=== PATIENT | female | born 1940 | race Caucasian/White ===

== ENCOUNTER 2022-02-01 11:28 | Inpatient (IN) | payer MEDICARE, OTHER, SELFPAY ==
[2022-02-01] VITALS (39 sets, daily range): BP systolic 114–170; BP diastolic 54–73; PULSE 62–82; RESP 16–32; TEMP 36.2–36.4; O2SAT 93–98; BMI 30.4
--- NOTE | 2022-02-01 11:44 | DI.CT.S_ITS ---
PROCEDURE: CT HEAD/BRAIN WO CON INDICATIONS: change in mental status, slurred words, now ok TECHNIQUE: Noncontrast 4.5 mm thick angled axial sections acquired from the foramen magnum to the vertex, with coronal and sagittal reformats. For radiation dose reduction, the following was used: automated exposure control, adjustment of mA and/or kV according to patient size. COMPARISON: None. FINDINGS: Image quality: Excellent. CSF spaces: Basal cisterns are patent. No extra-axial fluid collections. The ventricles are symmetric in size and shape. Brain: No intracranial bleeds or masses. There is cerebral volume loss for age, with resultant ventricular and sulcal prominence. There are periventricular and deep white matter chronic small vessel ischemic changes. There is intracranial internal carotid artery atherosclerosis. Skull and face: Calvarium and visualized facial bones appear intact, without suspicious lesions. Sinuses: Visualized sinuses demonstrate minimal maxillary, sphenoid and ethmoid mucosal thickening. IMPRESSION: 1. No acute intracranial process. 2. Moderate atrophy and chronic microvascular ischemic changes. Dictated by: Nila Keith M.D. on 02/01/2022 at 12:02 Approved by: Nila Keith M.D. on 02/01/2022 at 12:03
--- NOTE | 2022-02-01 11:44 | DI.RAD.S_ITS ---
PROCEDURE: XR CHEST 1V INDICATIONS: suspected sepsis TECHNIQUE: One view of the chest was acquired. COMPARISON: None. FINDINGS: Surgical changes and devices: None. Lungs and pleura: Lungs are clear. No pleural effusions or pneumothorax. Mediastinum: Mediastinal contours appear normal. Heart size is normal. Bones and chest wall: No suspicious bony lesions. Overlying soft tissues appear unremarkable. IMPRESSION: No acute process. Dictated by: Laura Mondragon M.D. on 02/01/2022 at 11:58 Approved by: Laura Mondragon M.D. on 02/01/2022 at 11:58
--- NOTE | 2022-02-01 12:07 | ED.NEUROSD ---
HPI - Neuro Symptoms/Deficit General Chief Complaint: Neuro Symptoms/Deficit Stated Complaint: slurring her words/ numbness/ history TIA Time Seen by Provider: 02/01/22 11:53 Source: patient and family Mode of arrival: Ambulatory History of Present Illness HPI Narrative: Patient is a 81-year-old female who is here for evaluation of was initially described as slurring her words, tingling/numbness/weakness in her right hand. She also has a history of a TIA. Approximately 4 days ago she was diagnosed with influenza. She is on Tamiflu. She is also on doxycycline for what the family describes as pneumonia. She is not taken her doxycycline today. A couple days ago she did have some vague tingling in her right hand. It was earlier today when she started having with family describes his slurring her words. Upon further questioning it appears that was more confusion and word-finding issues. There was period of time when she was talking in touch which is her [place] language and this was mixed with [place]. Here in the emergency department the patient denies chest pain, shortness of breath, headache, abdominal pain. She denies any cough. No fevers. No urinary tract infection like symptoms. No change in bowel habits. On Anticoagulants: Yes (ASA 81 mg) Related Data Allergies Allergy/AdvReac Type Severity Reaction Status Date / Time No Known Drug Allergies Allergy Verified 02/01/22 11:55 Review of Systems Review of Systems ROS Unobtainable: All systems reviewed & are unremarkable except as noted in HPI and below Hematologic/Lymphatic On Anticoagulants: Yes (ASA 81 mg) Patient History Medical History TIA (transient ischemic attack) Social History Smoking Status: Never smoker Smoking Status: Never smoker alcohol intake frequency: 0-2 drinks per day Substance Use Type: does not use Exam Initial Vital Signs Initial Vital Signs: Vital Signs Pulse Rate 67 02/01/22 11:44 Respiratory Rate 25 H 02/01/22 11:44 Const General: cooperative, comfortable and No ill appearing [facility] Head: normal to inspection and normocephalic Face and sinus: normal facial exam Mouth: oral mucosae normal Throat: posterior oropharynx normal Eyes General: Yes appearance normal, both eyes and all related structures Periorbital: periorbital findings normal Pupils: PERRL Neck Neck: normal visual inspection Chest Chest: normal inspection of the chest Resp Effort & Inspection: normal respiratory effort Auscultation: clear to auscultation bilaterally Cardio Rate: regular rate Rhythm: regular rhythm GI Inspection: normal to inspection and non-distended Skin General: no rashes or lesions noted Lesions: no lesions Neuro General: patient alert, patient awake, tone normal and moves all extremities Cranial Nerves: CN's II-XI intact bilaterally Cognition: abnormal cognition (Does not know the year. Does know the month. Knows she is in the hospital) Speech: speech normal and no expressive aphasia Motor: other (Strength is 5/5 bilateral upper and lower extremities equally except has 4/) Extrem General: normal to inspection and capillary refill normal Psych Appearance: grossly normal and well kempt Scores GCS R[place]ina coma scale eye opening: Spontaneous [place] coma scale verbal response: Confused [place] coma scale motor response: Obey commands [place] coma scale total score: 14 NIH Stroke Scale Level of Conciousness: Alert, keenly responsive Ask month/age: Answers both questions correctly. (However does not know the year) Open/close eyes, close hand: Performs both tasks correctly Best gaze horizontal: Normal Visual christopher: No visual loss Facial palsy: Normal symetrical movement Left arm drift: No drift for full 10 sec Right arm drift: No drift for full 10 sec (However decreased snow removal/plowing strength right hand compared to left) Left leg drift: No drift for full 5 sec Right leg drift: No drift for full 5 sec Limb ataxia: Absent Sensory on face/arms/legs: Normal, no sensory loss Best language: No aphasia, normal Dysarthria: Normal Extinction or inattention: No abnormality Total NIH Stroke scale score: 0 Course Orders Ordered: ED Orders 02/01/22 11:44 CT head/brain wo con Stat XR chest 1V Stat RT Consult Eval and Treat NOW 02/01/22 12:00 Complete Blood Count AUTO DIFF Stat Comprehensive Metabolic Panel Stat Lactate (Lactic Acid) Stat Lipase Stat Partial Thromboplastin Time Stat Procalcitonin Stat Prothrombin Time INR Stat Troponin & CK Cardiac Panel Stat 02/01/22 12:25 CT angio head and neck Stat 02/01/22 12:57 Urine Culture Stat Urine Microscopic Stat urine tox [Urine Drug Screen, Rapid] Stat 02/01/22 13:01 Blood Culture Stat 02/01/22 14:16 EKG-12 Lead Stat 02/01/22 15:30 Consult to Occupational Therapy Evaluate & Treat Consult to Physical Therapy Evaluate & Treat EC echo doppler complete Urgent MR head/brain wo con Stat Magnesium Urgent 02/01/22 15:33 Consult to Speech Therapy Evaluate & Treat 02/01/22 15:34 A1C [Hemoglobin A1C% w Est Avg Glu] Urgent Lipid Panel Urgent 02/01/22 15:42 Covid-19 + FLU A/B + RSV - PCR Stat 02/02/22 05:00 BMP [Basic Metabolic Panel] DAILY CBC Auto Diff [Complete Blood Count AUTO DIFF] DAILY 02/03/22 05:00 BMP [Basic Metabolic Panel] DAILY CBC Auto Diff [Complete Blood Count AUTO DIFF] DAILY 02/04/22 05:00 BMP [Basic Metabolic Panel] DAILY CBC Auto Diff [Complete Blood Count AUTO DIFF] DAILY Acetaminophen (Acetaminophen 325 Mg Tablet) 650 mg PO Q6H PRN PRN Reason: Fever/Mild Pain (1-3) Aspirin (Aspirin Ec 81 Mg Tablet) 81 mg PO DAILY [facility] Atorvastatin Calcium (Atorvastatin 20 Mg Tablet) 40 mg PO BEDTIME [facility] Enoxaparin Sodium (Enoxaparin 40 Mg/0.4 Ml Syringe) 40 mg SUBCUT DAILY [facility] Ceftriaxone Sodium 1,000 mg/ (Sodium Chloride) 100 mls @ 200 mls/hr IV Q24H [facility]ORY Stop: 02/04/22 15:29 Labetalol HCl (Labetalol 20 Mg/4 Ml Syringe) 10 mg IV Q5H PRN PRN Reason: SBP >220 or DBP >110 Melatonin (Melatonin 3 Mg Tablet) 6 mg PO BEDTIME PRN PRN Reason: Insomnia Naloxone HCl (Naloxone 0.4 Mg/Ml Vial) 0.2 mg IV Q2MIN PRN PRN Reason: Opiate Reversal Polyethylene Glycol (Polyethylene Glycol 3350 17 Gm Powd.Pack) 17 gm PO DAILY PRN PRN Reason: Constipation Sennosides (Sennosides 8.6 Mg Tablet) 8.6 mg PO BID PRN PRN Reason: Constipation Vital Signs Vital signs: Vital Signs - 8 hr 02/01/22 11:46 02/01/22 11:44 02/01/22 11:59 Temperature 97.6 F Pulse Rate 82 67 Respiratory Rate 24 25 H Blood Pressure 116/61 162/70 H Pulse Oximetry 98 Oxygen Delivery Method Room Air 02/01/22 11:59 02/01/22 12:00 02/01/22 12:00 Temperature Pulse Rate 69 67 Respiratory Rate 28 H 30 H Blood Pressure 156/68 H Pulse Oximetry 95 95 Oxygen Delivery Method 02/01/22 12:30 02/01/22 12:32 02/01/22 12:32 Temperature Pulse Rate 64 64 Respiratory Rate 32 H 24 Blood Pressure 163/70 H Pulse Oximetry 94 94 Oxygen Delivery Method 02/01/22 13:04 02/01/22 13:06 02/01/22 13:06 Temperature Pulse Rate 65 63 Respiratory Rate 21 Blood Pressure 143/68 H Pulse Oximetry 94 Oxygen Delivery Method 02/01/22 13:09 02/01/22 13:09 02/01/22 13:15 Temperature Pulse Rate 62 70 Respiratory Rate 25 H 25 H Blood Pressure 153/69 H Pulse Oximetry 95 95 Oxygen Delivery Method 02/01/22 13:15 02/01/22 13:30 02/01/22 13:30 Temperature Pulse Rate 64 Respiratory Rate 26 H Blood Pressure 134/64 133/58 L Pulse Oximetry 94 Oxygen Delivery Method Room Air 02/01/22 13:45 02/01/22 13:45 02/01/22 14:04 Temperature Pulse Rate 65 67 Respiratory Rate 25 H 30 H Blood Pressure 166/70 H Pulse Oximetry 94 98 Oxygen Delivery Method 02/01/22 14:05 02/01/22 14:05 02/01/22 14:15 Temperature Pulse Rate 68 67 Respiratory Rate 28 H 23 Blood Pressure 170/71 H Pulse Oximetry 95 95 Oxygen Delivery Method 02/01/22 14:15 02/01/22 14:30 02/01/22 14:30 Temperature Pulse Rate 64 Respiratory Rate 23 Blood Pressure 154/68 H 143/65 H Pulse Oximetry 94 Oxygen Delivery Method 02/01/22 14:44 02/01/22 14:45 02/01/22 14:45 Temperature Pulse Rate 64 65 Respiratory Rate 21 25 H Blood Pressure 151/61 H Pulse Oximetry 95 95 Oxygen Delivery Method 02/01/22 15:00 02/01/22 15:00 02/01/22 15:15 Temperature Pulse Rate 65 Respiratory Rate 22 Blood Pressure 135/64 120/57 L Pulse Oximetry 95 Oxygen Delivery Method 02/01/22 15:15 02/01/22 15:30 02/01/22 15:30 Temperature Pulse Rate 69 71 Respiratory Rate 22 28 H Blood Pressure 148/65 H Pulse Oximetry 94 94 Oxygen Delivery Method MDM - Neuro Symptoms/Deficit Lab Data Attestation: I reviewed the patient's lab results. Result diagrams: 02/01/22 12:00 02/01/22 12:00 Labs: Lab Results 02/01/22 02/01/22 02/01/22 Range/Units 12:00 12:00 12:00 WBC 4.8 (4.5-11.0) X10^3/uL RBC 3.71 L (4.0-5.2) X10^6/uL Hgb 12.2 (12.0-16.0) g/dL Hct 35.7 L (36-46) % MCV 96.1 (80-100) fL MCH 32.8 (26-34) PG MCHC 34.2 (30-36) % RDW 12.5 (11.6-14.8) % Plt Count 453 H (150-400) X10^3/uL Neut % (Auto) 53.1 (50-75) % Lymph % (Auto) 33.9 (25-40) % [place] % (Auto) 11.3 (3-14) % Eos % (Auto) 0.6 L (2-4) % Baso % (Auto) 1.1 (0-2) % Neut # (Auto) 2600 (4499-5315) /uL Lymph # (Auto) 1600 (2253-0396) /uL [place] # (Auto) 500 (0-900) /uL Eos # (Auto) 0 (0-450) /uL Baso # (Auto) 100 (0-100) /uL PT 12.8 H (10.1-12.7) SECONDS INR 1.1 (0.9-1.3) APTT 31 (26-36) SECONDS Sodium 139 (137-145) mmol/L Potassium 3.9 (3.4-5.1) mmol/L Chloride 103 (98-107) mmol/L Carbon Dioxide 25 (22-32) mmol/L BUN 16 (7-17) mg/dL Creatinine 0.67 (0.52-1.04) mg/dL Estimated GFR > 60 (>60) mL/min BUN/Creatinine Ratio 23.9 H (6-22) Glucose 99 (80-110) mg/dL Lactate (0.7-2.1) mmol/L Calcium 8.9 (8.4-10.2) mg/dL Total Bilirubin 0.5 (0.2-1.3) mg/dL AST 40 H (14-36) IU/L ALT 27 (<35) IU/L Alkaline Phosphatase 160 H (38-126) U/L Total Creatine Kinase 63 (30-135) U/L CK-MB (CK-2) TNP CK-MB (CK-2) Rel Index TNP Troponin I < 0.012 (0.01-0.034) ng/mL Total Protein 7.4 (6.3-8.2) g/dL Albumin 3.7 (3.5-5.0) g/dL Globulin 3.7 (1.7-4.1) g/dL Albumin/Globulin Ratio 1.0 (1.0-2.8) Lipase 67 (23-300) U/L Procalcitonin 0.05 (<0.5) ng/mL Urine RBC (0-5/HPF) Urine WBC (0-5/HPF) Ur Squamous Epith Cells (0-5/HPF) Urine Bacteria (None) Ur Culture Indicated? U Opiates 300ng/mL cut (Negative) Ur Oxycodone Screen (Negative) Urine Methadone Screen (Negative) Ur Barbiturates Screen (Negative) U Tricyclic Antidepress (Negative) Ur Phencyclidine Scrn (Negative) Ur Amphetamines Screen (Negative) U Methamphetamines Scrn (Negative) Ur MDMA Scrn (Ecstasy) (Negative) U Benzodiazepines Scrn (Negative) Urine Cocaine Screen (Negative) U Marijuana (THC) Screen (Negative) 02/01/22 02/01/22 02/01/22 Range/Units 12:00 12:57 12:57 WBC (4.5-11.0) X10^3/uL RBC (4.0-5.2) X10^6/uL Hgb (12.0-16.0) g/dL Hct (36-46) % MCV (80-100) fL MCH (26-34) PG MCHC (30-36) % RDW (11.6-14.8) % Plt Count (150-400) X10^3/uL Neut % (Auto) (50-75) % Lymph % (Auto) (25-40) % [place] % (Auto) (3-14) % Eos % (Auto) (2-4) % Baso % (Auto) (0-2) % Neut # (Auto) (4961-7531) /uL Lymph # (Auto) (4513-1542) /uL [place] # (Auto) (0-900) /uL Eos # (Auto) (0-450) /uL Baso # (Auto) (0-100) /uL PT (10.1-12.7) SECONDS INR (0.9-1.3) APTT (26-36) SECONDS Sodium (137-145) mmol/L Potassium (3.4-5.1) mmol/L Chloride (98-107) mmol/L Carbon Dioxide (22-32) mmol/L BUN (7-17) mg/dL Creatinine (0.52-1.04) mg/dL Estimated GFR (>60) mL/min BUN/Creatinine Ratio (6-22) Glucose (80-110) mg/dL Lactate 1.0 (0.7-2.1) mmol/L Calcium (8.4-10.2) mg/dL Total Bilirubin (0.2-1.3) mg/dL AST (14-36) IU/L ALT (<35) IU/L Alkaline Phosphatase (38-126) U/L Total Creatine Kinase (30-135) U/L CK-MB (CK-2) CK-MB (CK-2) Rel Index Troponin I (0.01-0.034) ng/mL Total Protein (6.3-8.2) g/dL Albumin (3.5-5.0) g/dL Globulin (1.7-4.1) g/dL Albumin/Globulin Ratio (1.0-2.8) Lipase (23-300) U/L Procalcitonin (<0.5) ng/mL Urine RBC 0-1/hpf (0-5/HPF) Urine WBC 5-10/hpf H (0-5/HPF) Ur Squamous Epith Cells 1-5 /hpf (0-5/HPF) Urine Bacteria Few (2-10) H (None) Ur Culture Indicated? Specimen cultured U Opiates 300ng/mL cut Negative (Negative) Ur Oxycodone Screen Negative (Negative) Urine Methadone Screen Negative (Negative) Ur Barbiturates Screen Negative (Negative) U Tricyclic Antidepress Negative (Negative) Ur Phencyclidine Scrn Negative (Negative) Ur Amphetamines Screen Negative (Negative) U Methamphetamines Scrn Negative (Negative) Ur MDMA Scrn (Ecstasy) Negative (Negative) U Benzodiazepines Scrn Negative (Negative) Urine Cocaine Screen Negative (Negative) U Marijuana (THC) Screen Negative (Negative) Urine Dip Bedside Urine Glucose Negative Bedside Urine Bilirubin - Negative Bedside Urine Ketone - Negative Urine Specific [place] 1.015 Bedside Urine Occult Blood +/- Bedside Urine pH 6.0 Bedside Urine Protein - Negative Bedside Urine Urobilinogen - Negative Bedside Urine Nitrite - Negative Bedside Urine Leukocytes + [address] scan - head: Radiologist's Impression: [address] [address] [address] Scan Report Signed Patient: Brandi Woodward MR#: [id number] : 1940 Acct:[id number] Age/Sex: 81 / F Date of Service: 02/01/22 Loc: ED Accession Number: [id number] ?? Procedure: CT head/brain wo con Ordering Provider: Kory Muir D.O. PROCEDURE:? CT HEAD/BRAIN WO CON ? INDICATIONS:? change in mental status, slurred words, now ok ? TECHNIQUE:? Noncontrast 4.5 mm thick angled axial sections acquired from the foramen magnum to the vertex, with coronal and sagittal reformats.? For radiation dose reduction, the following was used:? automated exposure control, adjustment of mA and/or kV according to patient size.? ? COMPARISON:? None. ? FINDINGS:? Image quality:? Excellent.? ? CSF spaces:? Basal cisterns are patent.? No extra-axial fluid collections.? The ventricles are symmetric in size and shape.? ? Brain:? No intracranial bleeds or masses.? There is cerebral volume loss for age, with resultant ventricular and sulcal prominence.? There are periventricular and deep white matter chronic small vessel ischemic changes.? There is intracranial internal carotid artery atherosclerosis.? ? Skull and face:? Calvarium and visualized facial bones appear intact, without suspicious lesions.? ? Sinuses:? Visualized sinuses demonstrate minimal maxillary, sphenoid and ethmoid mucosal thickening. ? IMPRESSION:? ? 1. No acute intracranial process. ? 2. Moderate atrophy and chronic microvascular ischemic changes. ? ? ? Dictated by: Nila Keith M.D. on 02/01/2022 at 12:02 ? ? Approved by: Nila Keith M.D. on 02/01/2022 at 12:03 Chest x-ray: Radiologist's Impression: [address] [address] XRay Report Signed Patient: Brandi Woodward MR#: [id number] : 1940 Acct:[id number] Age/Sex: 81 / F Date of Service: 02/01/22 Loc: ED Accession Number: [id number] ?? Procedure: XR chest 1V Ordering Provider: Kory Muir D.O. PROCEDURE:? XR CHEST 1V ? INDICATIONS:? suspected sepsis ? TECHNIQUE:? One view of the chest was acquired.? ? COMPARISON:? None. ? FINDINGS:? ? Surgical changes and devices:? None.? ? Lungs and pleura:? Lungs are clear.? No pleural effusions or pneumothorax.? ? Mediastinum:? Mediastinal contours appear normal.? Heart size is normal.? ? Bones and chest wall:? No suspicious bony lesions.? Overlying soft tissues appear unremarkable.? ? IMPRESSION:? No acute process. ? ? Dictated by: Laura Mondragon M.D. on 02/01/2022 at 11:58 ? ? Approved by: Laura Mondragon M.D. on 02/01/2022 at 11:58?? ECG Data Attestation: I personally reviewed and interpreted this ECG as follows: Interpretation: Sinus rhythm LVH Ventricular rate is 67 Normal QRS Normal QTC No ST T wave changes MDM Narrative Medical decision making narrative: Patient is on Tamiflu and also doxycycline for pneumonia that was diagnosed at an outside facility. She is afebrile here. Electrolytes are unremarkable. She is bacteria and white blood cells in her urine however has no UTI symptoms. Cultures were obtained. Head CT is unremarkable. Technically has an NIH score of 0 however does have decreased snow removal/plowing strength to the right hand compared to the left. In orientation questions she answers the month in the location correctly however does not know what year it is. This is not normal for her per family who is at bedside. Given her presenting symptoms will admit the patient for further evaluation and treatment. Discussed this with the patient and family and they expressed understanding. Discussed the case with Dr. Barraza who will admit for further evaluation treatment. Discharge Plan Departure Patient Disposition: Admitted as Observation Clinical Impression: Transient cerebral ischemia, Influenza, Confusion
--- NOTE | 2022-02-01 12:25 | DI.CT.S_ITS ---
PROCEDURE: CT ANGIO HEAD AND NECK INDICATIONS: Evaluate for stroke TECHNIQUE: After the administration of intravenous contrast, 1 mm thick sections acquired from the aortic arch through the [place]. Post-contrast 4.5 mm thick sections then re-acquired from the foramen magnum to the vertex. 3-dimensional ujhshee-nkuzyefla-odzkfucvzy (MIP) and/or volume rendering reformats were acquired of the central intracranial vasculature and neck separately. For radiation dose reduction, the following was used: automated exposure control, adjustment of mA and/or kV according to patient size. COMPARISON: None. FINDINGS: HEAD CT ANGIOGRAPHY: Diminished opacification of the left ICA extending through the terminus and into the proximal aspects of the left JOÃO and MCA branches. No focal occlusion or hemodynamically significant stenosis. Distal V4 segments, basilar artery, and posterior cerebral arteries normal. NECK CT ANGIOGRAPHY: Within the proximal left ICA just distal to the origin there is intraluminal thrombus producing moderate approximately 50-60% stenosis. Thrombus extends for approximately 1.5 cm in length, best seen on series 7 images 44-54. Mild atherosclerotic plaque and calcification in the common carotid arteries and carotid bifurcations bilaterally. Cervical vertebral arteries widely patent. OTHER FINDINGS: Apical pleural parenchymal scarring in both lungs with associated cicatricial bronchiectasis. No acute or suspicious bone lesion. IMPRESSION: Filling defect in the left proximal ICA producing 50-60% stenosis is favored to represent thrombus. Recommend consultation of endovascular service for potential clot retrieval. Any quantitative measurements of stenosis were performed using NASCET criteria. Dictated by: Guzman Haas M.D. on 02/01/2022 at 15:42 Approved by: Guzman Haas M.D. on 02/01/2022 at 15:49
[2022-02-01 12:45] LABS: Add Manual Diff / Slide Review NO; Basophils Absolute Auto 100 /uL (0-100); Basophils Percent Auto 1.1 % (0-2); Eosinophils Absolute Auto 0 /uL (0-450); Eosinophils Percent Auto 0.6 % (2-4); Hematocrit 35.7 % (36-46); Hemoglobin 12.2 g/dL (12.0-16.0); Lymphocytes Absolute Auto 1600 /uL (1100-4500); Lymphocytes Percent Auto 33.9 % (25-40); Mean Corpuscular HGB Conc 34.2 % (30-36); Mean Corpuscular Hemoglobin 32.8 PG (26-34); Mean Corpuscular Volume 96.1 fL (80-100); Monocytes Absolute Auto 500 /uL (0-900); Monocytes Percent Auto 11.3 % (3-14); Neutrophils Absolute Auto 2600 /uL (1500-7000); Neutrophils Percent Auto 53.1 % (50-75); Platelet Count 453 X10^3/uL (150-400); Red Blood Cell Count 3.71 X10^6/uL (4.0-5.2); Red Cell Distribution Width 12.5 % (11.6-14.8); White Blood Cell Count 4.8 X10^3/uL (4.5-11.0)
[2022-02-01 12:56] LABS: INR 1.1 (0.9-1.3); Prothrombin Time 12.8 SECONDS (10.1-12.7)
[2022-02-01 12:59] LABS: PTT Partial Thromboplastin Tim 31 SECONDS (26-36)
[2022-02-01 13:15] LABS: UR Morphine/Opiate cutoff 300 Negative (Negative); Ur Creatinine Normal (Normal); Ur Specific Gravity Normal (Normal); Urine Amphetamines Negative (Negative); Urine Barbiturates Negative (Negative); Urine Benzodiazepines Negative (Negative); Urine Cocaine Negative (Negative); Urine MDMA Negative (Negative); Urine Methadone Negative (Negative); Urine Methamphetamines Negative (Negative); Urine Oxycodone Negative (Negative); Urine Phencyclidine Negative (Negative); Urine Tetrahydrocannabinol Negative (Negative); Urine Tricyclic Antidepressant Negative (Negative); Urine pH Normal (Normal)
[2022-02-01 13:33] LABS: Alanine Aminotransferase 27 IU/L (<35); Albumin 3.7 g/dL (3.5-5.0); Alkaline Phosphatase 160 U/L (38-126); Aspartate Aminotransferase 40 IU/L (14-36); BUN Creatinine Ratio 23.9 (6-22); Bilirubin Total 0.5 mg/dL (0.2-1.3); Blood Urea Nitrogen 16 mg/dL (7-17); Calcium 8.9 mg/dL (8.4-10.2); Carbon Dioxide 25 mmol/L (22-32); Chloride 103 mmol/L (98-107); Creatine Kinase 63 U/L (30-135); Estimated Glomerular Filt Rate > 60 mL/min (>60); Globulin 3.7 g/dL (1.7-4.1); Glucose 99 mg/dL (80-110); HEMOLYSIS < 15 (0-50); Lipase 67 U/L (23-300); Potassium 3.9 mmol/L (3.4-5.1); Sodium 139 mmol/L (137-145); Total Protein 7.4 g/dL (6.3-8.2)
[2022-02-01 13:45] LABS: Troponin I < 0.012 ng/mL (0.01-0.034)
[2022-02-01 13:49] LABS: Procalcitonin 0.05 ng/mL (<0.5)
[2022-02-01 14:01] LABS: Bacteria Urine Few (2-10); Culture Indicated Urine Specimen Cultured; RBC Urine 0-1/HPF (0-5/HPF); Squamous Epithelial Cell Urine 1-5 /HPF (0-5/HPF); WBC Urine 5-10/HPF (0-5/HPF)
--- NOTE | 2022-02-01 15:30 | DI.ECHO.S_ITS ---
[facility] +[facility]+ : : [address] : : : : [id number] : : : : Phone: [phone]+ Echocardiogram Report + + :Name: JOSE FRANCISCO IRIZARRY Study Date: 02/02/2022 Height: 65.5 in: :[facility] ReadingLocation: Weight: 182 lb : : Gender: Female BSA: 1.9 m2 : :: 1940 Age: 81 yrs BP: 120/57 mmHg: :Reason For Study: TIA : :Ordering Physician: MARILYNN GUTIERREZ : :Reji Escobar Performed By: Delores Handy : :Referring: MARILYNN GUTIERREZ D.O. : + + Interpretation Summary The left ventricular cavity is small. Left ventricular systolic function appears normal without focal wall motion abnormalities. The ejection fraction is estimated to be 55-60%. Diastolic parameters suggest a relaxation abnormality of the left ventricle, consistent with probable normal filling pressures. The right ventricle is normal in size and function. The left atrial size is normal. Right atrial size is normal. There is moderate calcification extending into the subvalvular apparatus. The mitral valve leaflets appear mildly thickened, but open well. There is significant calcification along the aortic-mitral curtain. This could be a potenial source for embolic events. There is mild to moderate mitral regurgitation. There is no other significant valvular heart disease. The aortic root is normal size. Procedure: A two-dimensional transthoracic echocardiogram with color flow and Doppler was performed. The study quality was technically adequate. There is no prior echocardiogram noted for this patient. The patient was in sinus rhythm with heart rates between 60-70 bpm during the exam. Left Ventricle: The left ventricular cavity is small. There is normal left ventricular wall thickness. Left ventricular systolic function appears normal without focal wall motion abnormalities. The ejection fraction is estimated to be 55-60%. Diastolic parameters suggest a relaxation abnormality of the left ventricle, consistent with probable normal filling pressures. Right Ventricle: The right ventricle is normal in size and function. Atria: The left atrial size is normal. Right atrial size is normal. There is no Doppler evidence for an interatrial shunt. Mitral Valve: There is moderate calcification extending into the subvalvular apparatus. The mitral valve leaflets appear mildly thickened, but open well. There is significant calcification along the aortic-mitral curtain. This could be a potenial source for embolic events. There is mild to moderate mitral regurgitation. Aortic Valve: The aortic valve is trileaflet. The aortic valve opens well. There is no aortic valve stenosis. There is trace aortic regurgitation. Tricuspid Valve: The tricuspid valve is normal in structure and function. There is mild tricuspid regurgitation. Pulmonic Valve: The pulmonic valve leaflets are thin and pliable; valve motion is normal. There is trace pulmonic regurgitation. There is no other significant valvular heart disease. Great Vessels: The aortic root is normal size. The dimensions of the ascending aorta are normal. The IVC is of normal diameter and collapses greater than 50% with a sniff. This suggests a low right atrial pressure of 3 mm Hg. Pericardium/ Pleura There is no pericardial effusion. There is no pleural effusion. MMode/2D Measurements & Calculations LVIDd: 3.3 cm LVOT diam: 1.9 cm LVIDs: 2.2 cm Ao root diam: 3.0 cm FS: 35.1 % asc Aorta Diam: 3.5 cm IVSd: 0.76 cm Ao Arch Diam (Prox Trans): 3.0 cm LVPWd: 0.90 cm LV hogan. diameter/BSA (cm/m^2): 1.7 LV sys. diameter/BSA (cm/m^2): 1.1 LA A2 area: 11.1 cm2 RA long axis: 3.7 cm LA A4 area: 11.0 cm2 RA area: 8.9 cm2 LA length (vol): 3.7 cm RA vol: 18.1 ml LA vol: 28.4 ml RA : 9.5 ml/m2 LA vol index: 14.9 ml/m2 IVC diam: 1.6 cm RVD1 (basal): 2.5 cm RVD2 (mid): 2.4 cm TAPSE: 1.4 cm Doppler Measurements & Calculations Ao V2 max: 99.3 cm/sec LVOT Max Fredy: 94.5 cm/sec Ao V2 mean: 72.8 cm/sec LV V1 max P.6 mmHg Ao max P.9 mmHg LV V1 VTI: 20.6 cm Ao mean P.3 mmHg RIGO(I,D): 2.7 cm2 Ao V2 VTI: 21.1 cm RIGO(V,D): 2.7 cm2 sev ratio: 0.98 RIGO indexed to BSA (cm^2/m^2): 1.4 MV E max fredy: 66.1 cm/sec PA V2 max: 91.4 cm/sec MV A max fredy: 70.4 cm/sec PA V2 mean: 67.5 cm/sec MV E/A: 0.94 PA mean P.0 mmHg Med Peak E' Fredy: 5.6 cm/sec PA pr(Accel): 39.6 mmHg E/E' med: 11.9 Lat Peak E' Fredy: 6.2 cm/sec E/E' lat: 10.7 E/e' average: 11.3 MV dec time: 0.31 sec SV(LVOT): 57.7 ml Reading Physician:12:28 PM
--- NOTE | 2022-02-01 15:30 | DI.MRI.S_ITS ---
PROCEDURE: MR HEAD/BRAIN WO CON INDICATIONS: TIA TECHNIQUE: Noncontrast axial T1 spin echo, axial T2 fast spin echo, sagittal and axial FLAIR, coronal T2 fast spin echo, axial gradient echo, axial diffusion and ADC through the brain. COMPARISON: [facility], CT, CT ANGIO HEAD AND NECK, 02/01/2022, 13:53. FINDINGS: Image quality: Excellent CSF spaces: Basal cisterns are patent. Lateral ventricles are symmetric. 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 Volume loss is present. These findings are inoi-oc-sykjappv. Brain: Multifocal small acute infarcts are seen throughout the left convexity garcia matter, extending along the centrum semi ovale, white matter tracts, and left caudate head. FLAIR signal is seen associated with these findings. No large area of hemorrhage identified. Craniofacial structures: No displaced fracture. Small amount of fluid in the right maxillary sinus. Orbits are intact. IMPRESSION: Multifocal small infarcts in the left hemisphere. Dictated by: Jens Arriaza M.D. on 02/01/2022 at 18:55 Approved by: Jens Arriaza M.D. on 02/01/2022 at 18:58
--- NOTE | 2022-02-01 16:26 | PT-IP ANOTE ---
Received PT orders and reviewed the chart. Pt presenting with TIA-like symptoms. MRI has been ordered but not yet conducted. Pt remains in ED but will be moved to the floor when a room is available. Will follow up for PT evaluation once imaging is completed.
[2022-02-01] MEDS: cefTRIAXone 1,000 MG in SODIUM CHLORIDE 0.9% 100 ML 200 MG IV (16:51)
[2022-02-01 17:52] LABS: Influenza A - CEPHEID Flu A POSITIVE (NEGATIVE); Influenza B - CEPHEID Flu B NEGATIVE (NEGATIVE); Respiratory Syncytial Virus Negative (Negative)
[2022-02-01 18:05] LABS: COVID-19 CEPHEID 4-PLEX PCR Negative (Negative)
[2022-02-01] MEDS: diazePAM 10 MG/2 ML SYRINGE 2 MG IV (18:14)
[2022-02-01] MEDS: HEPARIN DRIP 25,000 UNIT/500 ML IV.SOLN 29.88 UNIT IV (20:36)
[2022-02-01 20:37] LABS: Cholesterol 207 mg/dL (140-199); HDL Cholesterol 38 mg/dL (40-60); LDL Cholesterol Calculated 148 mg/dL (<100); Triglycerides 104 mg/dL (35-150)
--- NOTE | 2022-02-01 20:44 | PC.NURSE ---
heparin checked with CATRACHO Barnes
--- NOTE | 2022-02-01 21:32 | P.HP_ITS ---
History of Present Illness History of Present Illness Date Patient Seen: 02/01/22 Time Patient Seen: 21:32 Chief complaint: slurring her words/ numbness/ history TIA Narrative: Brandi Woodward is an 81-year-old female with a history of TIA and takes daily aspirin 81 mg who presented to the ED with her family today stating that she has been having tingling numbness and weakness to the right hand for approximately 4 days, today the family noticed slurring of words which appears to be more word- finding and confusion difficulties which the family states is not her baseline. Patient was also diagnosed with Flu 4 days ago, and was placed on Tamiflu. She also apparently was given doxycycline for a possible pneumonia diagnosis the family was unsure. Patient did have an NIH:0, GCS: 14 in the ED. at the time of admit patient's gcpuarnm-ng-xqf was at bedside states that patient normally walks 3 miles a day and volunteers several times a week, and is extremely active and independent. Patient is lying in the bed very flat affect not engaging in conversation minimal xvpbvibuktz-zcdvrznk-ww-law states this is not her baseline. Patient denies chest pain, shortness breast, fever, body aches, chills, abdominal pain, nausea, vomiting, diarrhea, blood in urine or stool, urinary frequency urgency dysuria, recent falls head injuries, skin injuries or open wounds, recent illness, or changes to her medication. Patient's laboratory findings were predominantly within normal limits have a slight elevated platelet count at 453, AST 40 and alk-phos 160, total cho lesterol 207, LDL 148, HDL 38, patient's troponin, lipase, procalcitonin, lactate, lipase were all within normal limits. Patient's urine had bacteria culture is pending. Patient's EKG sinus rhythm with a ventricular rate of [address] or T-wave changes I personally this. Patient's head CT, chest x-ray were negative for any acute intracranial or cardiopulmonary processes. Patient's MRI of the brain demonstrated multifocal small infarcts in the left hemisphere. Head neck CTA demonstrated within the proximal left ICA just distal to the origin there is intraluminal thrombus with moderate stenosis 50-60%. .? Thrombus extends for approximately 1.5 cm in length, and mild atherosclerotic plaque and calcification in the common carotid arteries and carotid bifurcations bilaterally. Tele stroke was consulted Dr. Plummer and Dr. Amado regarding interventtional tx, and that the patient was not a candidate for surgical intervention. Patient is admitted for stroke multifocal of left hemisphere with confusion, thrombosis left ICA with moderate stenosis, and influenza A. Patient History Medical History (Updated 02/02/22 @ 02:41 by PANCHITO Auguste) Hyperlipidemia TIA (transient ischemic attack) Surgical History (Updated 02/02/22 @ 02:40 by PANCHITO Auguste) History of dental surgery Family & Social History Family History Father Heart attack Mother Heart attack Stroke Safety & Behavioral: Feels Safe in Current Yes Environment Been Physically Hurt or No Threatened By a Person Tobacco & Substance use: Smoking Status Never smoker alcohol intake frequency 0-2 drinks per day Substance Use Type does not use Meds Home Medications and Allergies Home Medications Medication Instructions Recorded Confirmed Type doxycycline monohydrate 100 mg 100 mg PO BID 02/01/22 02/01/22 History tablet oseltamivir 75 mg capsule 75 mg PO BID 02/01/22 02/01/22 History simvastatin 40 mg tablet 40 mg PO DAILY 02/01/22 02/01/22 History Allergies Allergy/AdvReac Type Severity Reaction Status Date / Time No Known Drug Allergies Allergy Verified 02/01/22 11:55 Review of Systems Review of Systems Narrative: All 12 point systems reviewed with the patient and are negative except otherwise documented. Exam Vital Signs (past 8 hours): - 02/01/22 13:45 02/01/22 13:45 02/01/22 14:04 Pulse Rate 65 67 Respiratory Rate 25 H 30 H Blood Pressure 166/70 H Pulse Oximetry 94 98 02/01/22 14:05 02/01/22 14:05 02/01/22 14:15 Pulse Rate 68 67 Respiratory Rate 28 H 23 Blood Pressure 170/71 H Pulse Oximetry 95 95 02/01/22 14:15 02/01/22 14:30 02/01/22 14:30 Pulse Rate 64 Respiratory Rate 23 Blood Pressure 154/68 H 143/65 H Pulse Oximetry 94 02/01/22 14:44 02/01/22 14:45 02/01/22 14:45 Pulse Rate 64 65 Respiratory Rate 21 25 H Blood Pressure 151/61 H Pulse Oximetry 95 95 02/01/22 15:00 02/01/22 15:00 02/01/22 15:15 Pulse Rate 65 Respiratory Rate 22 Blood Pressure 135/64 120/57 L Pulse Oximetry 95 02/01/22 15:15 02/01/22 15:30 02/01/22 15:30 Pulse Rate 69 71 Respiratory Rate 22 28 H Blood Pressure 148/65 H Pulse Oximetry 94 94 02/01/22 15:45 02/01/22 15:45 02/01/22 16:00 Pulse Rate 71 Respiratory Rate 29 H Blood Pressure 146/66 H 140/65 Pulse Oximetry 94 02/01/22 16:00 02/01/22 16:15 02/01/22 16:15 Pulse Rate 74 69 Respiratory Rate 25 H 24 Blood Pressure 141/69 H Pulse Oximetry 96 93 02/01/22 16:30 02/01/22 16:30 02/01/22 16:45 Pulse Rate 72 Respiratory Rate 25 H Blood Pressure 149/72 H 124/60 Pulse Oximetry 94 02/01/22 16:45 02/01/22 17:00 02/01/22 17:00 Pulse Rate 75 69 Respiratory Rate 31 H 25 H Blood Pressure 150/67 H Pulse Oximetry 95 96 02/01/22 17:15 02/01/22 17:15 02/01/22 17:30 Pulse Rate 73 Respiratory Rate 23 Blood Pressure 150/73 H 151/69 H Pulse Oximetry 93 02/01/22 17:30 02/01/22 17:45 02/01/22 17:45 Pulse Rate 72 73 Respiratory Rate 26 H 25 H Blood Pressure 119/59 L Pulse Oximetry 94 95 02/01/22 18:00 02/01/22 18:00 02/01/22 18:15 Pulse Rate 75 Respiratory Rate 25 H Blood Pressure 138/63 138/64 Pulse Oximetry 95 02/01/22 18:15 02/01/22 18:48 02/01/22 18:50 Pulse Rate 75 68 69 Respiratory Rate 27 H 23 24 Blood Pressure Pulse Oximetry 97 95 02/01/22 18:50 02/01/22 19:00 02/01/22 19:00 Pulse Rate 67 Respiratory Rate 21 Blood Pressure 160/72 H 134/64 Pulse Oximetry 93 02/01/22 19:30 02/01/22 19:31 02/01/22 19:31 Pulse Rate 70 71 Respiratory Rate 27 H Blood Pressure 152/66 H Pulse Oximetry 94 93 02/01/22 20:00 02/01/22 20:00 Pulse Rate 65 Respiratory Rate 20 Blood Pressure 114/54 L Pulse Oximetry 95 Oxygen Delivery Method Room Air Narrative Exam Narrative: General: Patient is a soft-spoken small framed fit well-groomed elderly female in no distress at this time. HEENT: Normocephalic, atraumatic, extraocular muscles intact, oral pharynx is clear and mucous membranes are moist. Neck is supple and symmetric, trachea is midline, no adenopathy, no thyroid enlargement, nontender, no masses palpated. Negative for JVD Chest: Normal AP diameter and contour without kyphoscoliosis, no nasal flaring, retractions, or tachypneic labored Lungs: Auscultation of all lung christopher are clear without adventitious sounds, wheezes, rhonchi, or rales. Cardio: regular rate and rhythm without murmur, rubs, or gallops, no carotid bruit, no cardiac pulsations present. Abdomen: Soft nontender, negative for organomegaly, or masses. Bowel sounds are present in all 4 quadrants without guarding or rebound, no CVA tenderness. Musculoskeletal: Muscle strength and tone are equal within normal limits, no deformity, crepitus, effusions, cyanosis, clubbing or edema present. Full range of motion intact radial and pedal pulses are normal. Skin: Warm dry and intact without rashes, ulcerations or petechiae. Neuro: Alert and orientated x3, strength is +5/5 in all extremities, sensation to touch intact, no gross deficits noted of cranial nerves. 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 Psych: Patient has a well-kept appearance, patient has a flat affect, unengaged avoids eye contact, appears to be withdrawn and not processing information or participating in decision-making regarding her care. Her xyuaafue-gh-bnb who is at the bedside describes her baseline as very independent, always on the go very intellectually and physically active, engaging. Objective Labs Result Diagrams: 02/01/22 12:00 02/01/22 12:00 Labs: Laboratory Results - last 24 hr 02/01/22 02/01/22 02/01/22 12:00 12:00 12:00 WBC 4.8 RBC 3.71 L Hgb 12.2 Hct 35.7 L MCV 96.1 MCH 32.8 MCHC 34.2 RDW 12.5 Plt Count 453 H Neut % (Auto) 53.1 Lymph % (Auto) 33.9 [place] % (Auto) 11.3 Eos % (Auto) 0.6 L Baso % (Auto) 1.1 Neut # (Auto) 2600 Lymph # (Auto) 1600 [place] # (Auto) 500 Eos # (Auto) 0 Baso # (Auto) 100 PT 12.8 H INR 1.1 APTT 31 Sodium 139 Potassium 3.9 Chloride 103 Carbon Dioxide 25 BUN 16 Creatinine 0.67 Estimated GFR > 60 BUN/Creatinine Ratio 23.9 H Glucose 99 Lactate Calcium 8.9 Magnesium Total Bilirubin 0.5 AST 40 H ALT 27 Alkaline Phosphatase 160 H Total Creatine Kinase 63 CK-MB (CK-2) TNP CK-MB (CK-2) Rel Index TNP Troponin I < 0.012 Total Protein 7.4 Albumin 3.7 Globulin 3.7 Albumin/Globulin Ratio 1.0 Triglycerides Cholesterol LDL Cholesterol, Calc HDL Cholesterol Lipase 67 Procalcitonin 0.05 Urine RBC Urine WBC Ur Squamous Epith Cells Urine Bacteria Ur Culture Indicated? U Opiates 300ng/mL cut Ur Oxycodone Screen Urine Methadone Screen Ur Barbiturates Screen U Tricyclic Antidepress Ur Phencyclidine Scrn Ur Amphetamines Screen U Methamphetamines Scrn Ur MDMA Scrn (Ecstasy) U Benzodiazepines Scrn Urine Cocaine Screen U Marijuana (THC) Screen SARS-CoV-2 (PCR) Influenza A (RT-PCR) Influenza B (RT-PCR) RSV (PCR) 02/01/22 02/01/22 02/01/22 12:00 12:00 12:00 WBC RBC Hgb Hct MCV MCH MCHC RDW Plt Count Neut % (Auto) Lymph % (Auto) [place] % (Auto) Eos % (Auto) Baso % (Auto) Neut # (Auto) Lymph # (Auto) [place] # (Auto) Eos # (Auto) Baso # (Auto) PT INR APTT Sodium Potassium Chloride Carbon Dioxide BUN Creatinine Estimated GFR BUN/Creatinine Ratio Glucose Lactate 1.0 Calcium Magnesium 2.0 Total Bilirubin AST ALT Alkaline Phosphatase Total Creatine Kinase CK-MB (CK-2) CK-MB (CK-2) Rel Index Troponin I Total Protein Albumin Globulin Albumin/Globulin Ratio Triglycerides 104 Cholesterol 207 H LDL Cholesterol, Calc 148 H HDL Cholesterol 38 L Lipase Procalcitonin Urine RBC Urine WBC Ur Squamous Epith Cells Urine Bacteria Ur Culture Indicated? U Opiates 300ng/mL cut Ur Oxycodone Screen Urine Methadone Screen Ur Barbiturates Screen U Tricyclic Antidepress Ur Phencyclidine Scrn Ur Amphetamines Screen U Methamphetamines Scrn Ur MDMA Scrn (Ecstasy) U Benzodiazepines Scrn Urine Cocaine Screen U Marijuana (THC) Screen SARS-CoV-2 (PCR) Influenza A (RT-PCR) Influenza B (RT-PCR) RSV (PCR) 02/01/22 02/01/22 02/01/22 12:57 12:57 17:00 WBC RBC Hgb Hct MCV MCH MCHC RDW Plt Count Neut % (Auto) Lymph % (Auto) [place] % (Auto) Eos % (Auto) Baso % (Auto) Neut # (Auto) Lymph # (Auto) [place] # (Auto) Eos # (Auto) Baso # (Auto) PT INR APTT Sodium Potassium Chloride Carbon Dioxide BUN Creatinine Estimated GFR BUN/Creatinine Ratio Glucose Lactate Calcium Magnesium Total Bilirubin AST ALT Alkaline Phosphatase Total Creatine Kinase CK-MB (CK-2) CK-MB (CK-2) Rel Index Troponin I Total Protein Albumin Globulin Albumin/Globulin Ratio Triglycerides Cholesterol LDL Cholesterol, Calc HDL Cholesterol Lipase Procalcitonin Urine RBC 0-1/hpf Urine WBC 5-10/hpf H Ur Squamous Epith Cells 1-5 /hpf Urine Bacteria Few (2-10) H Ur Culture Indicated? Specimen cultured U Opiates 300ng/mL cut Negative Ur Oxycodone Screen Negative Urine Methadone Screen Negative Ur Barbiturates Screen Negative U Tricyclic Antidepress Negative Ur Phencyclidine Scrn Negative Ur Amphetamines Screen Negative U Methamphetamines Scrn Negative Ur MDMA Scrn (Ecstasy) Negative U Benzodiazepines Scrn Negative Urine Cocaine Screen Negative U Marijuana (THC) Screen Negative SARS-CoV-2 (PCR) Negative Influenza A (RT-PCR) Flu a positive H Influenza B (RT-PCR) Flu b negative RSV (PCR) Negative Assessment & Plan Assessment & Plan narrative: Brandi Woodward is a sherita 81-year-old female with a history of TIA and hyperlipidemia who takes simvastatin and aspirin daily, who family at the bedside describe as walks 3 miles a day is extremely independent always very busy and on the go keeps her mind sharp and is extremely active and engaging. She was brought in today by her family after noting possibly slurred speech, word-finding and slight confusion, and after 4 days of tingling and numbness to the right hand as reported by the patient. The patient was found to have left hemisphere infarctions on the left, and proximal left ICA intraluminal thrombosis with moderate stenosis Patient is admitted for stroke multifocal of left hemisphere with mild cognitive impairment, thrombosis left ICA with moderate stenosis, and influenza A. 1. Stroke,Multifocal infarct, small, left hemisphere, acute with mild cognitive impairment, present on admission -symptoms numbness tingling and weakness of the right hand and arm, slurred speech word-finding difficulties and mild cognitive impairment.-mild cognitive impairment appears to continue other symptoms have resolved -NIH:0 on admit GCS 14 -tele stroke consult Dr. Plummer and Dr. Amado -MRI of the brain demonstrated multifocal small infarcts in the left hemisphere. -head CT, chest x-ray were negative for any acute intracranial or cardiopulmonary processes -echo ordered -troponin, lipase, procalcitonin, lactate, lipase were all within normal limits -see heparin drip protocol below -EKG sinus rhythm with a ventricular rate of [address] or T-wave changes I personally reviewed this. 2. 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 .? Thrombus extends for approximately 1.5 cm in length, and mild atherosclerotic plaque and calcification in the common carotid arteries and carotid bifurcations bilaterally. -patient to be placed on heparin drip APTT goal 50-70 once patient reaches goal range patient to have a head CT completed, after 3 days on heparin drip repeat CTA to determine if thrombosis has been dissolved. If not repeat CTA again after 3 days. Recommended average heparin drip approximately 5-7 days. -consult with tele stroke Dr. Plummer/Dr. Amado -patient given an initial dose of 325 ASA, to be followed 81 mg q.day in addition to heparin. 3. Hyperlipidemia, with a history of TIA, acute stroke, chronic, present on admission -will replace patient's simvastatin with Lipitor - total cholesterol 207, LDL 148, HDL 38 4. Influenza a, acute, present on admission -patient had been diagnosed with the flu approximately 4 days ago and had been on Tamiflu will continue for a total of 10 days. -symptom management, respiratory consult, respiratory support as needed Code status:FULL Surrogate decision maker: Daughter Radha YE PCR:Negative DVT/VTE prophylaxis: Heparin drip, SCDs only Disposition: Patient admitted to acute care will be on heparin drip protocol for thrombosis for at least 72 hours expected length of stay greater than 2 midnights. I have utilized all available immediate resources to obtain, update, or review the patient's current medications. I confirmed that the patient's advanced care plan is present, Code status is documented and/or surrogate decision maker is listed in the patient's medical record. I have personally reviewed patient's chart notes from PCP, specialists, diagnostic imaging, and laboratory, Time Spent With Patient Critical Care time: I spent a total of [] minutes of critical care time on this patient's care today; this time is exclusive of procedural time.
--- NOTE | 2022-02-01 22:33 | PC.NURSE ---
heparin drip 2230 heparin drip order changed to reflect pt's current/actual wt of 51kg. was initially entered as 83kg and thus the dosing was incorrect for heparin order. hospitalist Ranjan notified of the same.
[2022-02-01] MEDS: ACETAMINOPHEN 325 MG TABLET 650 MG PO (22:37)
[2022-02-01] MEDS: ATORVASTATIN 20 MG TABLET 80 MG PO (22:38)
[2022-02-01] MEDS: ASPIRIN EC 325 MG TABLET PO (22:38)
[2022-02-01] MEDS: HEPARIN DRIP 25,000 UNIT/500 ML IV.SOLN 18.36 UNIT IV (22:47)
[2022-02-02] VITALS (7 sets, daily range): BP systolic 113–122; BP diastolic 46–74; PULSE 61–75; RESP 16–18; TEMP 36.2–36.6; O2SAT 93–98
[2022-02-02] MEDS: MELATONIN 3 MG TABLET 6 MG PO (01:33)
[2022-02-02 02:59] LABS: Add Manual Diff / Slide Review NO; Basophils Absolute Auto 100 /uL (0-100); Eosinophils Absolute Auto 0 /uL (0-450); Eosinophils Percent Auto 0.8 % (2-4); Hematocrit 30.8 % (36-46); Hemoglobin 10.3 g/dL (12.0-16.0); Lymphocytes Absolute Auto 1800 /uL (1100-4500); Lymphocytes Percent Auto 37.2 % (25-40); Mean Corpuscular HGB Conc 33.5 % (30-36); Mean Corpuscular Hemoglobin 32.5 PG (26-34); Mean Corpuscular Volume 96.9 fL (80-100); Monocytes Absolute Auto 600 /uL (0-900); Monocytes Percent Auto 11.4 % (3-14); Neutrophils Absolute Auto 2400 /uL (1500-7000); Neutrophils Percent Auto 48.6 % (50-75); Platelet Count 423 X10^3/uL (150-400); Red Blood Cell Count 3.18 X10^6/uL (4.0-5.2); Red Cell Distribution Width 12.5 % (11.6-14.8); White Blood Cell Count 4.9 X10^3/uL (4.5-11.0)
[2022-02-02 03:07] LABS: BUN Creatinine Ratio 27.7 (6-22); Blood Urea Nitrogen 18 mg/dL (7-17); Calcium 8.4 mg/dL (8.4-10.2); Carbon Dioxide 27 mmol/L (22-32); Chloride 101 mmol/L (98-107); Estimated Glomerular Filt Rate > 60 mL/min (>60); Glucose 111 mg/dL (80-110); HEMOLYSIS < 15 (0-50); Potassium 3.9 mmol/L (3.4-5.1); Sodium 135 mmol/L (137-145)
[2022-02-02 03:19] LABS: PTT Partial Thromboplastin Tim 133 SECONDS (26-36)
--- NOTE | 2022-02-02 06:58 | PC.NURSE ---
Patient is A & O x 2-3, forgetful, NIHSS = 2, mild expressive aphasia, c/o weakness to right hand. PTT 133, Heparin drip turned off x 30 min and restarted at 700 units or 14ml/hr per protocal. Next ptt due at 0920. Per tele SR.
--- NOTE | 2022-02-02 08:17 | P.PN_ITS ---
Subjective Subjective Date Patient Seen: 02/02/22 Interval history: Patient's son at bedside and multiple questions were answered concerning her stroke and plan of treatment. Patient currently having some speech difficulty with slight aphasia, but otherwise feeling ok. Exam Vital Signs (past 8 hours): - 02/02/22 01:00 Temperature 97.7 F Pulse Rate 75 Respiratory Rate 18 Blood Pressure 117/74 Pulse Oximetry 93 Oxygen Delivery Method Room Air Oxygen Flow Rate 0 Narrative Exam Narrative: General: Patient is a soft-spoken small framed fit well-groomed elderly female in no distress at this time. HEENT: Normocephalic, atraumatic, extraocular muscles intact, oral pharynx is clear and mucous membranes are moist. Neck is supple and symmetric, trachea is midline, no adenopathy, no thyroid enlargement, nontender, no masses palpated. Negative for JVD Chest: Normal AP diameter and contour without kyphoscoliosis, no nasal flaring, retractions, or tachypneic labored Lungs: Auscultation of all lung christopher are clear without adventitious sounds, wheezes, rhonchi, or rales. Cardio: regular rate and rhythm without murmur, rubs, or gallops, no carotid bruit, no cardiac pulsations present. Abdomen: Soft nontender, negative for organomegaly, or masses. Bowel sounds are present in all 4 quadrants without guarding or rebound, no CVA tenderness. Musculoskeletal: Muscle strength and tone are equal within normal limits, no deformity, crepitus, effusions, cyanosis, clubbing or edema present. Full range of motion intact radial and pedal pulses are normal. Skin: Warm dry and intact without rashes, ulcerations or petechiae. Neuro: Alert and orientated x3, strength is +5/5 in left upper ext but 4/5 and right upper ext, sensation to touch intact, no gross deficits noted of cranial nerves. Noted right orthotics prosthetics technician is slightly decreased over left. Psych: Patient has a well-kept appearance, patient has a flat affect, unengaged avoids eye contact, appears to be withdrawn and not processing information or participating in decision-making regarding her care. Her asyszdit-sg-sur who is at the bedside describes her baseline as very independent, always on the go very intellectually and physically active, engaging. Objective Labs Result Diagrams: 02/02/22 02:45 02/02/22 02:45 Labs: Laboratory Results - last 24 hr 02/01/22 02/01/22 02/01/22 12:00 12:00 12:00 WBC 4.8 RBC 3.71 L Hgb 12.2 Hct 35.7 L MCV 96.1 MCH 32.8 MCHC 34.2 RDW 12.5 Plt Count 453 H Neut % (Auto) 53.1 Lymph % (Auto) 33.9 [place] % (Auto) 11.3 Eos % (Auto) 0.6 L Baso % (Auto) 1.1 Neut # (Auto) 2600 Lymph # (Auto) 1600 [place] # (Auto) 500 Eos # (Auto) 0 Baso # (Auto) 100 PT 12.8 H INR 1.1 APTT 31 Sodium 139 Potassium 3.9 Chloride 103 Carbon Dioxide 25 BUN 16 Creatinine 0.67 Estimated GFR > 60 BUN/Creatinine Ratio 23.9 H Glucose 99 Lactate Calcium 8.9 Magnesium Total Bilirubin 0.5 AST 40 H ALT 27 Alkaline Phosphatase 160 H Total Creatine Kinase 63 CK-MB (CK-2) TNP CK-MB (CK-2) Rel Index TNP Troponin I < 0.012 Total Protein 7.4 Albumin 3.7 Globulin 3.7 Albumin/Globulin Ratio 1.0 Triglycerides Cholesterol LDL Cholesterol, Calc HDL Cholesterol Lipase 67 Procalcitonin 0.05 Urine RBC Urine WBC Ur Squamous Epith Cells Urine Bacteria Ur Culture Indicated? U Opiates 300ng/mL cut Ur Oxycodone Screen Urine Methadone Screen Ur Barbiturates Screen U Tricyclic Antidepress Ur Phencyclidine Scrn Ur Amphetamines Screen U Methamphetamines Scrn Ur MDMA Scrn (Ecstasy) U Benzodiazepines Scrn Urine Cocaine Screen U Marijuana (THC) Screen SARS-CoV-2 (PCR) Influenza A (RT-PCR) Influenza B (RT-PCR) RSV (PCR) 02/01/22 02/01/22 02/01/22 12:00 12:00 12:00 WBC RBC Hgb Hct MCV MCH MCHC RDW Plt Count Neut % (Auto) Lymph % (Auto) [place] % (Auto) Eos % (Auto) Baso % (Auto) Neut # (Auto) Lymph # (Auto) [place] # (Auto) Eos # (Auto) Baso # (Auto) PT INR APTT Sodium Potassium Chloride Carbon Dioxide BUN Creatinine Estimated GFR BUN/Creatinine Ratio Glucose Lactate 1.0 Calcium Magnesium 2.0 Total Bilirubin AST ALT Alkaline Phosphatase Total Creatine Kinase CK-MB (CK-2) CK-MB (CK-2) Rel Index Troponin I Total Protein Albumin Globulin Albumin/Globulin Ratio Triglycerides 104 Cholesterol 207 H LDL Cholesterol, Calc 148 H HDL Cholesterol 38 L Lipase Procalcitonin Urine RBC Urine WBC Ur Squamous Epith Cells Urine Bacteria Ur Culture Indicated? U Opiates 300ng/mL cut Ur Oxycodone Screen Urine Methadone Screen Ur Barbiturates Screen U Tricyclic Antidepress Ur Phencyclidine Scrn Ur Amphetamines Screen U Methamphetamines Scrn Ur MDMA Scrn (Ecstasy) U Benzodiazepines Scrn Urine Cocaine Screen U Marijuana (THC) Screen SARS-CoV-2 (PCR) Influenza A (RT-PCR) Influenza B (RT-PCR) RSV (PCR) 02/01/22 02/01/22 02/01/22 12:57 12:57 17:00 WBC RBC Hgb Hct MCV MCH MCHC RDW Plt Count Neut % (Auto) Lymph % (Auto) [place] % (Auto) Eos % (Auto) Baso % (Auto) Neut # (Auto) Lymph # (Auto) [place] # (Auto) Eos # (Auto) Baso # (Auto) PT INR APTT Sodium Potassium Chloride Carbon Dioxide BUN Creatinine Estimated GFR BUN/Creatinine Ratio Glucose Lactate Calcium Magnesium Total Bilirubin AST ALT Alkaline Phosphatase Total Creatine Kinase CK-MB (CK-2) CK-MB (CK-2) Rel Index Troponin I Total Protein Albumin Globulin Albumin/Globulin Ratio Triglycerides Cholesterol LDL Cholesterol, Calc HDL Cholesterol Lipase Procalcitonin Urine RBC 0-1/hpf Urine WBC 5-10/hpf H Ur Squamous Epith Cells 1-5 /hpf Urine Bacteria Few (2-10) H Ur Culture Indicated? Specimen cultured U Opiates 300ng/mL cut Negative Ur Oxycodone Screen Negative Urine Methadone Screen Negative Ur Barbiturates Screen Negative U Tricyclic Antidepress Negative Ur Phencyclidine Scrn Negative Ur Amphetamines Screen Negative U Methamphetamines Scrn Negative Ur MDMA Scrn (Ecstasy) Negative U Benzodiazepines Scrn Negative Urine Cocaine Screen Negative U Marijuana (THC) Screen Negative SARS-CoV-2 (PCR) Negative Influenza A (RT-PCR) Flu a positive H Influenza B (RT-PCR) Flu b negative RSV (PCR) Negative 02/02/22 02/02/22 02/02/22 02:45 02:45 02:45 WBC 4.9 RBC 3.18 L Hgb 10.3 L Hct 30.8 L MCV 96.9 MCH 32.5 MCHC 33.5 RDW 12.5 Plt Count 423 H Neut % (Auto) 48.6 L Lymph % (Auto) 37.2 [place] % (Auto) 11.4 Eos % (Auto) 0.8 L Baso % (Auto) 2.0 Neut # (Auto) 2400 Lymph # (Auto) 1800 [place] # (Auto) 600 Eos # (Auto) 0 Baso # (Auto) 100 PT INR APTT 133 H* D Sodium 135 L Potassium 3.9 Chloride 101 Carbon Dioxide 27 BUN 18 H Creatinine 0.65 Estimated GFR > 60 BUN/Creatinine Ratio 27.7 H Glucose 111 H Lactate Calcium 8.4 Magnesium Total Bilirubin AST ALT Alkaline Phosphatase Total Creatine Kinase CK-MB (CK-2) CK-MB (CK-2) Rel Index Troponin I Total Protein Albumin Globulin Albumin/Globulin Ratio Triglycerides Cholesterol LDL Cholesterol, Calc HDL Cholesterol Lipase Procalcitonin Urine RBC Urine WBC Ur Squamous Epith Cells Urine Bacteria Ur Culture Indicated? U Opiates 300ng/mL cut Ur Oxycodone Screen Urine Methadone Screen Ur Barbiturates Screen U Tricyclic Antidepress Ur Phencyclidine Scrn Ur Amphetamines Screen U Methamphetamines Scrn Ur MDMA Scrn (Ecstasy) U Benzodiazepines Scrn Urine Cocaine Screen U Marijuana (THC) Screen SARS-CoV-2 (PCR) Influenza A (RT-PCR) Influenza B (RT-PCR) RSV (PCR) [facility] Medical History (Updated 02/02/22 @ 02:41 by PANCHITO Auguste) Hyperlipidemia TIA (transient ischemic attack) Surgical History (Updated 02/02/22 @ 02:40 by PANCHITO Auguste) History of dental surgery Family History Father Heart attack Mother Heart attack Stroke Social History household members: none Smoking Status: Never smoker Assessment & Plan Assessment & Plan narrative: 1. Acute left hemisphere multifocal infarcts, small, with mild cognitive im pairment, present on admission -symptoms numbness tingling and weakness of the right hand and arm, slurred speech word-finding difficulties and mild cognitive impairment.-mild cognitive impairment appears to continue other symptoms have resolved -NIH:0 on admit GCS 14 -tele stroke consult Dr. Plummer and Dr. Amado -MRI of the brain demonstrated multifocal small infarcts in the left hemisphere. -head CT, chest x-ray were negative for any acute intracranial or cardiopulmonary processes -echo 02/02 with EF 55-60% and no focal WMA's, but mod calcification of subvalvular appartus and significant calcification along aortic-mitral curtion which may be a potential source for embolic events -continue ASA 81mg daily and lipitor 80mg nightly -see heparin drip protocol below -EKG sinus rhythm with a ventricular rate of [address] or T-wave changes I personally reviewed this. 2. 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 .? Thrombus extends for approximately 1.5 cm in length, and mild atherosclerotic plaque and calcification in the common carotid arteries and carotid bifurcations bilate rally. -patient to be placed on heparin drip APTT goal 50-70 once patient reaches goal range patient to have a head CT completed, after 3 days on heparin drip repeat CTA to determine if thrombosis has been dissolved. If not repeat CTA again after 3 days. Recommended average heparin drip approximately 5-7 days. -consult with tele stroke Dr. Plummer/Dr. Amado -patient given an initial dose of 325 ASA, to be followed 81 mg q.day in addition to heparin. 3. Hyperlipidemia, with a history of TIA, acute stroke, chronic, present on admission -will replace patient's simvastatin with Lipitor at 80mg - total cholesterol 207, LDL 148, HDL 38 4. Influenza a, acute, present on admission -patient had been diagnosed with the flu approximately 4 days ago and had been on Tamiflu will continue for a total of 10 days. -symptom management, respiratory consult, respiratory support as needed Code status:FULL Surrogate decision maker: Daughter Radha YE PCR:Negative DVT/VTE prophylaxis: Heparin drip, SCDs only Disposition: 3-5 days pending CTA evidence of resolved L carotid intraluminal thrombus. Time Spent With Patient Critical Care time: I spent a total of [] minutes of critical care time on this patient's care today; this time is exclusive of procedural time.
--- NOTE | 2022-02-02 09:05 | OT.IPNOTE ---
Per Hospitalist okay to hold pt from therapy eval as still on drip and not appropriate to be seen today. To check back on pt tomorrow.
[2022-02-02 10:07] LABS: PTT Partial Thromboplastin Tim 100 SECONDS (26-36)
--- NOTE | 2022-02-02 10:07 | SLP.IPNOTE ---
Pt is reported by nursing to demonstrate delayed processing with reading words/sentences and pt was unable to perform mental math (What is 10=2?). Pt was with xray when I tried to see her. Will try again later.
--- NOTE | 2022-02-02 11:52 | PT-IP ANOTE ---
PT eval received and EMR reviewed. pt with APTT of 133 and per hospitalist, hold eval at this time.
[2022-02-02] MEDS: cefTRIAXone 1,000 MG in SODIUM CHLORIDE 0.9% 100 ML 200 MG IV (11:53)
[2022-02-02] MEDS: SODIUM CHLORIDE 0.9% 250 ML 21 ML IV (11:57)
--- NOTE | 2022-02-02 14:25 | PT.IIE ---
Current Diagnoses Cerebral infarction, unspecified (02/01/22) Surgical History (Last Updated 02/02/22 @ 02:40 [facility] History of dental surgery Medical History (Last Updated 02/02/22 @ 02:40 by Marilu Woodruff [facility]) Hyperlipidemia TIA (transient ischemic attack) Physical Therapy Inpatient Evaluation/Re-Eval M1 PT/OT-IP Prior Functional Status Start: 02/02/22 15:56 Freq: NEEDED Status: Active Protocol: Document 02/02/22 14:25 AB (Rec: 02/02/22 16:21 AB [id number]) Medical Review Prior Functional Status Medical History Reviewed Yes Communication able to make needs known but requires increase time to respond to questions; inconsistent with following directions Mobility and Gait pt stated that she is independent with all mobilities and ambulation without AD; still able to drive Social History Household Members none Living Arrangements House Number of Floors (Floors) One Floor Number of Stairs To Enter/Railing? no steps to enter Home Environment Standard Height Toilet,Walk in Shower,Built-In Shower Seat Home Equipment Hand Held Shower,Grab Bars In Shower Additional Social History Comment son stated that he can stay with him if needed and other family members can also assist pt M2 PT-IP Current Condition Start: 02/02/22 15:56 Freq: NEEDED Status: Active Protocol: Document 02/02/22 14:25 AB (Rec: 02/02/22 16:21 AB [email or web address]) Physical Therapy Current Condition Current Condition Evaluation Date 02/02/22 Treatment Diagnosis Influenza A; L CVA; difficulty in walking Onset Date 02/01/22 M3 PT-IP Subjective Start: 02/02/22 15:56 Freq: NEEDED Status: Active Protocol: Document 02/02/22 14:25 AB (Rec: 02/02/22 16:21 AB [email or web address]) Subjective Physical Therapy Visit Type Type Initial Evaluation Visit Start Time 14:25 Visit Stop Time 15:00 Total Visit Minutes 35 Notes Pt on hold for this morning due to APTT of 133. Repeat APTT down to 100. checked with nurse and NAC and stated that pt is ambulating in room. checked on pt and pt requesting to use the toilet and PT eval completed. Number of EDGE STITCHER Visits 0 Physical Therapy Visit Comments Patient Comments agreeable to do PT; requested to use the toilet Therapy Pain Assessment Pain Present Pain Present Denied Pain M4 PT-IP Mobility and Gait Start: 02/02/22 15:56 Freq: NEEDED Status: Active Protocol: Document 02/02/22 14:25 AB (Rec: 02/02/22 16:21 AB [id number]) PT-Transfer Assessment Sit to and From Stand Sit to and from Stand Standby Assistance Equipment Transfer Assistive Device Gait Belt,Front Wheeled Walker Orthotic/Prosthetic Devices or Brace: No Transfers Transfer Destination Toilet Transfer Technique ambulated Transfer Ability Level of Assist Contact Guard Assistance,Use of Upper Extremities Comments Mobility Comments pt sitting on EOB and son in room. pt requesting to use the toilet. completed sit to stand SBA and ambulated to the toilet using FWW CGA. cues for safety. pt completed toileting and required CGA for standing balance using FWW while completing hygiene care and brief management. pt ambulated towards the sink without AD CGA. presentes with unsteady gait. pt completed handwashing CGA for steadiness. pt ambulated to the chair and rested. pt agreed to ambulate more in room. completed ambulation without AD CGA ~ 30 ft. present with unsteady gait and unable to walk a straight path. assessed standing balance: NBOS with eyes open: G NBOS with eyes closed: unsteady with deviation to the R. NBOS with perturbations: unsteady but able to regain balance without assistance. pt agreed to stay up on the chair. positioned on the chair . call light and table placed within reach. Gait Assessment Gait Gait Assistance Required: Contact Guard Assist Distance (Feet) 30 Able to Maintain Weight Bearing Status Yes During Gait Assistive Devices Assistive Device None,Gait Belt,Front Wheeled Walker Orthotic/Prosthetic Devices or Brace: No Gait Deviations General Gait Pattern Ataxic,Decreased Stride Length ,Decreased Feet Clearance,Step -to Gait Factors Limiting Gait Function Factors Limiting Gait Function Decreased Activity Tolerance, Decreased Strength,Poor Balance,Poor Safety Awareness PT-Balance Assessment Sitting Balance and Reactions Static Sitting Balance Ability Normal Dynamic Sitting Balance Ability Good Standing Balance and Reactions Static Standing Balance Ability Good Dynamic Standing Balance Ability Fair Device Used without AD M5 PT-IP Objective Assessments Start: 02/02/22 15:56 Freq: NEEDED Status: Active Protocol: Document 02/02/22 14:25 AB (Rec: 12/06/22 16:21 AB [id number]) Orientation Orientation/Cognition Level of Alertness Alert Orientation Name,Place,Situation Language Function Ability Word Finding Difficulties Safety Awareness Decreased Safety Awareness Memory Description No Deficits Noted Comments inconsistent with following directions Gross Range of Motion Lower Extremity ROM Assessment Within Functional Limits Strength Lower Extremity Strength Assessment Left Impaired Comments Strength Comments LLE: 3+/5 RLE: 4-/5 Muscle Tone Muscle Tone WNL Yes M6 PT-IP Treatment Start: 02/02/22 15:56 Freq: NEEDED Status: Active Protocol: Document 02/02/22 14:25 AB (Rec: 02/02/22 16:21 AB [id number]) Physical Therapy Treatment Education Education Provided Safety M7 PT-IP Assessment and Plan Start: 02/02/22 15:56 Freq: NEEDED Status: Active Protocol: Document 02/02/22 14:25 AB (Rec: 02/02/22 16:21 AB [email or web address]) PT Summary Assessment and Plan Potential Rehabilitation Potential Fair Status of Condition at Evaluation Evolving Summary Impairments Pain,ROM,Strength,Balance, Coordination,Sensation,Tone, Cognition,Bed Mobility, Transfers,Gait,Activity Tolerance Assessment Summary pt requiring CGA with ambulation without AD and presents with unsteady gait. dynamic standing balance without AD F and will benefit from PT to improve standing balance and improve ambulation and mobility without AD and decrease risk of falls. will continue to assess progress. pt plans to go home and family to assist her. pt will benefit from outpt PT. Goals Bed Mobility Goal Independent Transfer Goal Independent Gait Goal Independent Gait Distance 200 Days to Meet Goals 5 Frequency of Treatment Frequency Of Treatment Once a Day Treatment Plan Physical Therapy Treatment Plan Bed Mobility Training,Transfer Training,Gait Training, Therapeutic Exercise,Balance Retraining,Discharge Planning, Hot or Cold Pack,Neuromuscular Re-ed,Coordination Retraining ,Manual Therapy Precautions Other Precautions Droplet: Influenza A Recommendations To Nursing Amount of Assist Needed 1 Person Assist Discharge Recommendations PT Discharge Recommendations Home with Assistance,Home with 24/ Assist Available, Outpatient PT Transportation Needs at Discharge Private Vehicle
--- NOTE | 2022-02-02 16:19 | ST.IPSLE ---
Visit Care Team Role Provider Type Kory Muir DO Emergency Provider Physician Referring Provider Specialty: Emergency Medicine Address: [address] [place] [address], [id number] Email: [email or web address] Ángel [email or web address] [email or web address] Admit Provider Physician Attending Provider Specialty: Internal Medicine Address: [address] [place] [address], [id number] Email: [email or web address] Diagnoses Cerebral infarction, unspecified (02/01/22) Past Medical History (Last Updated 02/02/22 @ 02:40 by [facility] Hyperlipidemia (Medical) TIA (transient ischemic attack) (Medical) Speech-Language Pathology Speech/Language Eval WOOD HEEL FLAP RUBBER Adult Cognitive Linguistic Eval Start: 02/02/22 16:10 Freq: Status: Active Protocol: Document 02/02/22 16:10 KENDY (Rec: 02/02/22 16:19 ZS [id number]) Adult Cognitive Linguistic Evaluation Session Time Visit Start Time 15:30 Visit Stop Time 15:45 Total Visit Minutes 15 Visit Information Visit Number 1 Setting Assessment Location Acute Care Visit Type Note Type Initial evaluation Next Note Type Next Note Type Treatment Note Patient Information Identification Type Name Patient History Per H&P: Brandi Woodward is an 81-year-old female with a history of TIA and takes daily aspirin 81 mg who presented to the ED with her family today stating that she has been having tingling numbness and weakness to the right hand for approximately 4 days, today the family noticed slurring of words which appears to be more word- finding and confusion difficulties which the family states is not her baseline. Patient was also diagnosed with Flu 4 days ago, and was placed on Tamiflu. She also apparently was given doxycycline for a possible pneumonia diagnosis the family was unsure. Patient did have an NIH:0, GCS: 14 in the ED. at the time of admit patient's bqeyusds-hy-hrr was at bedside states that patient normally walks 3 miles a day and volunteers several times a week, and is extremely active and independent. Patient is lying in the bed very flat affect not engaging in conversation minimal iubcqledfqk-fmqanncd-ld-law states this is not her baseline. Patient denies chest pain, shortness breast, fever, body aches, chills, abdominal pain, nausea, vomiting, diarrhea, blood in urine or stool, urinary frequency urgency dysuria, recent falls head injuries, skin injuries or open wounds, recent illness, or changes to her medication. Language(s) Spoken in the Home French Subjective Patient Report Pt was seated semi-reclined in bed with relative present and on the phone when WOOD HEEL FLAP RUBBER arrived . Brandi greeted the WOOD HEEL FLAP RUBBER and agreed to participate in all assessment activities. She reported no difficulty with speech or swallowing and confirmed difficulty with word finding. Assessment Oral Motor Examination Completed Yes Results Pt presents with symmetrical structures at rest and in motion. Tongue, lip, and jaw strength were WNL. Tongue ROM was reduced, though WFL. Lip and jaw ROM were WNL. Dentition present and WNL. Structure and function of oral mechanism appears WNL for the purposes of speech and swallowing. Findings/Results Language Function Mild-moderately impaired Findings Completed confrontation naming task with objects in the room . Pt exhibited difficulty naming standard hospital cup, though labeled the mug as cup rapidly. She named 2/5 presented items and exhibited difficulty recalling the word TV when trying to describe the remote, calling the TV a sign and providing a vague gesture in the general direction of the screen. Discussed strategies for improved word finding, of which pt expressed understanding. Recommend follow-up with speech therapy for increased independence in word finding strategies and to monitor cognitive skills. Did not assess cognition at this time as pt has a UTI, which can negatively impact cognition. Will continue to monitor and assess cognition as appropriate given status of UTI. Prognosis Prognosis Fair Based on Cognitive status,Comorbidities ,Duration of symptoms/severity ,Time since onset Plan of Care Speech-Language Treatment Yes Patient/Caregiver Education Described results of evaluation,Patient expressed understanding of evaluation, Patient expressed agreement with goals and treatment plans ,Patient requires further education/training,Family/ caregivers require further education/training Short Term Goals 1. Pt will independently use word finding strategies during unstructured conversation. 2. Pt will complete confrontation naming tasks with 100% accuracy using word finding strategies. 3. Pt will participate in cognitive screening.
[2022-02-02 20:00] LABS: PTT Partial Thromboplastin Tim 56 SECONDS (26-36)
[2022-02-02] MEDS: ATORVASTATIN 20 MG TABLET 80 MG PO (20:45)
[2022-02-03 03:35] VITALS: BP 118/62; PULSE 66; RESP 17; TEMP 36; O2SAT 95
[2022-02-03 06:39] LABS: BUN Creatinine Ratio 21.5 (6-22); Blood Urea Nitrogen 14 mg/dL (7-17); Calcium 8.4 mg/dL (8.4-10.2); Carbon Dioxide 28 mmol/L (22-32); Chloride 103 mmol/L (98-107); Estimated Glomerular Filt Rate > 60 mL/min (>60); Glucose 99 mg/dL (80-110); HEMOLYSIS < 15 (0-50); Potassium 4.2 mmol/L (3.4-5.1); Sodium 137 mmol/L (137-145)
[2022-02-03 06:52] LABS: PTT Partial Thromboplastin Tim 49 SECONDS (26-36)
[2022-02-03 07:14] LABS: Add Manual Diff / Slide Review NO; Basophils Absolute Auto 100 /uL (0-100); Basophils Percent Auto 1.1 % (0-2); Eosinophils Absolute Auto 100 /uL (0-450); Eosinophils Percent Auto 1.2 % (2-4); Hematocrit 34.4 % (36-46); Hemoglobin 11.7 g/dL (12.0-16.0); Lymphocytes Absolute Auto 1800 /uL (1100-4500); Lymphocytes Percent Auto 30.9 % (25-40); Mean Corpuscular Hemoglobin 32.8 PG (26-34); Mean Corpuscular Volume 96.4 fL (80-100); Monocytes Absolute Auto 700 /uL (0-900); Monocytes Percent Auto 12.1 % (3-14); Neutrophils Absolute Auto 3100 /uL (1500-7000); Neutrophils Percent Auto 54.7 % (50-75); Platelet Count 406 X10^3/uL (150-400); Red Blood Cell Count 3.57 X10^6/uL (4.0-5.2); Red Cell Distribution Width 12.8 % (11.6-14.8); White Blood Cell Count 5.7 X10^3/uL (4.5-11.0)
[2022-02-03 07:30] VITALS: BP 115/57; PULSE 74; RESP 18; TEMP 36.1; O2SAT 95
--- NOTE | 2022-02-03 07:34 | PC.NURSE ---
PTT 0605 draw 49, desired range per order is 50-70. Janie Woodruff notified and stated to consider this in range and don't adjust the rate of Heparin drip. Rate remains at 500 units/hr = 10ml/hr. Next PTT in am.
[2022-02-03] MEDS: ASPIRIN EC 81 MG TABLET PO (08:25)
[2022-02-03] MEDS: ESCITALOPRAM 10 MG TABLET PO (08:25)
--- NOTE | 2022-02-03 08:25 | PM.PN.1 ---
Subjective Subjective Date Patient Seen: 02/03/22 Interval history: Patient is somnolent and doesn't speak much. Son at bedside and questions were answered. Exam Vital Signs (past 8 hours): - 02/03/22 03:35 Temperature 96.8 F L Pulse Rate 66 Respiratory Rate 17 Blood Pressure 118/62 Pulse Oximetry 95 Oxygen Flow Rate 0 Oxygen Delivery Method Room Air Oxygen Flow Rate 0 Narrative Exam Narrative: General: Patient is a soft-spoken small framed fit well-groomed elderly female in no distress at this time. HEENT: Normocephalic, atraumatic, extraocular muscles intact, oral pharynx is clear and mucous membranes are moist. Neck is supple and symmetric, trachea is midline, no adenopathy, no thyroid enlargement, nontender, no masses palpated. Negative for JVD Chest: Normal AP diameter and contour without kyphoscoliosis, no nasal flaring, retractions, or tachypneic labored Lungs: Auscultation of all lung christopher are clear without adventitious sounds, wheezes, rhonchi, or rales. Cardio: regular rate and rhythm without murmur, rubs, or gallops, no carotid bruit, no cardiac pulsations present. Abdomen: Soft nontender, negative for organomegaly, or masses. Bowel sounds are present in all 4 quadrants without guarding or rebound, no CVA tenderness. Musculoskeletal: Muscle strength and tone are equal within normal limits, no deformity, crepitus, effusions, cyanosis, clubbing or edema present. Full range of motion intact radial and pedal pulses are normal. Skin: Warm dry and intact without rashes, ulcerations or petechiae. Neuro: Alert and orientated x3, strength is +5/5 in left upper ext but 4/5 and right upper ext, sensation to touch intact, no gross deficits noted of cranial nerves. Noted right salesperson shoes is slightly decreased over left. Psych: Patient has a well-kept appearance, patient has a flat affect, unengaged avoids eye contact, appears to be withdrawn and not processing information or participating in decision-making regarding her care. Her [id number] who is at the bedside describes her baseline as very independent, always on the go very intellectually and physically active, engaging. Objective Labs Result Diagrams: 02/03/22 06:05 02/03/22 06:05 Labs: Laboratory Results - last 24 hr 02/01/22 02/02/22 02/02/22 12:00 09:44 19:38 WBC RBC Hgb Hct MCV MCH MCHC RDW Plt Count Neut % (Auto) Lymph % (Auto) [place] % (Auto) Eos % (Auto) Baso % (Auto) Neut # (Auto) Lymph # (Auto) [place] # (Auto) Eos # (Auto) Baso # (Auto) APTT 100 H* D 56 H D Sodium Potassium Chloride Carbon Dioxide BUN Creatinine Estimated GFR BUN/Creatinine Ratio Glucose Hemoglobin A1c 6.0 Calcium 02/03/22 02/03/22 02/03/22 06:05 06:05 06:05 WBC 5.7 RBC 3.57 L Hgb 11.7 L Hct 34.4 L MCV 96.4 MCH 32.8 MCHC 34.0 RDW 12.8 Plt Count 406 H Neut % (Auto) 54.7 Lymph % (Auto) 30.9 [place] % (Auto) 12.1 Eos % (Auto) 1.2 L Baso % (Auto) 1.1 Neut # (Auto) 3100 Lymph # (Auto) 1800 [place] # (Auto) 700 Eos # (Auto) 100 Baso # (Auto) 100 APTT 49 H Sodium 137 Potassium 4.2 Chloride 103 Carbon Dioxide 28 BUN 14 Creatinine 0.65 Estimated GFR > 60 BUN/Creatinine Ratio 21.5 Glucose 99 Hemoglobin A1c Calcium 8.4 [facility] Medical History (Updated 02/02/22 @ 02:41 by PANCHITO Auguste) Hyperlipidemia TIA (transient ischemic attack) Surgical History (Updated 02/02/22 @ 02:40 by PANCHITO Auguste) History of dental surgery Family History Father Heart attack Mother Heart attack Stroke Social History household members: none Smoking Status: Never smoker Assessment & Plan Assessment & Plan narrative: 1. Acute left hemisphere multifocal infarcts, small, with mild cognitive impairment, present on admission -symptoms numbness tingling and weakness of the right hand and arm, slurred speech word-finding difficulties and mild cognitive impairment.-mild cognitive impairment appears to continue other symptoms have resolved -NIH:0 on admit GCS 14 -tele stroke consult Dr. Plummer and Dr. Amado -MRI of the brain demonstrated multifocal small infarcts in the left hemisphere. -head CT, chest x-ray were negative for any acute intracranial or cardiopulmonary processes -echo 02/02 with EF 55-60% and no focal WMA's, but mod calcification of subvalvular appartus and significant calcification along aortic-mitral curtion which may be a potential source for embolic events -continue ASA 81mg daily and lipitor 80mg nightly -see heparin drip protocol below -EKG sinus rhythm with a ventricular rate of [address] or T-wave changes I personally reviewed this. -start lexapro daily for depression prevention, son agrees to low dose 2. 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 .? Thrombus extends for approximately 1.5 cm in length, and mild atherosclerotic plaque and calcification in the common carotid arteries and carotid bifurcations bilaterally. -patient to be placed on heparin drip APTT goal 50-70 once patient reaches goal range patient to have a head CT completed, after 3 days on heparin drip repeat CTA to determine if thrombosis has been dissolved. If not repeat CTA again after 3 days. Recommended average heparin drip approximately 5-7 days. -consult with tele stroke Dr. Plummer/Dr. Amado -patient given an initial dose of 325 ASA, to be followed 81 mg q.day in addition to heparin. 3. Hyperlipidemia, with a history of TIA, acute stroke, chronic, present on admission -will replace patient's simvastatin with Lipitor at 80mg - total cholesterol 207, LDL 148, HDL 38 4. Influenza a, acute, present on admission -patient had been diagnosed with the flu approximately 4 days ago and had been on Tamiflu will continue for a total of 10 days. -symptom management, respiratory consult, respiratory support as needed Code status:FULL Surrogate decision maker: Daughter Radha EY PCR:Negative DVT/VTE prophylaxis: Heparin drip, SCDs only Disposition: Will be 3-5 days pending CTA evidence of resolved L carotid intraluminal thrombus. Time Spent With Patient Critical Care time: I spent a total of [] minutes of critical care time on this patient's care today; this time is exclusive of procedural time.
--- NOTE | 2022-02-03 08:43 | CM.DANOTE ---
Initial DCP Assessment Note Pt is an 81 yo female, resident of [place], arrives with slurring of words, hx TIA, admitted for known stroke and repeat neck CTA 3-5 days d/t Thrombosis identified. Patient also Flu A+ Radha Jones is listed as patient's DPOA, need contact information PCP: Not Listed Payer: JACOBY/Landon Reviewed chart, pt indp and active at baseline, walks daily and volunteers weekly. PT currently clearing patient for return home w/HH and family to assist CM team will plan to follow closely for coordination of DCP SARAH Patel Discharge Planning/Care Management CM Discharge Assessment Start: 02/03/22 08:41 Wojciechq: Status: Active Protocol: Document 02/03/22 08:41 BRYAN (Rec: 02/03/22 08:43 BRYAN [id number]) Discharge Planning Assessment Assigned Coach SARAH Aranda DPOA/Assigned Designee Name brando Resendiz Contact Information [phone] Advance Directives? No History Provided By Patient,Family Member Prior Living Arrangements House Household Members none Type of transporation used prior to Drives own vehicle admit Independent with ADL's Yes Is patient alert and oriented? Yes Patient/Family Preference Home with Home Health Barriers to Discharge No Comment Expect home w/HH and family to assist Discharge Plan Home with Home Health Transportation Arrangement Family Referrals Initiated Home Health Additional Comment Will review [facility] choice list with patient before referral is made
[2022-02-03 11:00] VITALS: BP 117/54; PULSE 60; RESP 16; TEMP 36.4; O2SAT 94
--- NOTE | 2022-02-03 11:52 | PT-IP ANOTE ---
checked on pt 2x and pt asleep and son does not want pt to do PT and stated that pt has not slept.
--- NOTE | 2022-02-03 11:56 | SLP.IPNOTE ---
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 She awoke to a verbal greeting and refused services, stating she is too tired to participate. Will attempt after lunch to see if she has more energy.
[2022-02-03] MEDS: HEPARIN DRIP 25,000 UNIT/500 ML IV.SOLN 10 UNIT IV (12:54)
[2022-02-03] MEDS: cefTRIAXone 1,000 MG in SODIUM CHLORIDE 0.9% 100 ML 200 MG IV (12:58)
--- NOTE | 2022-02-03 13:31 | SLP.IPNOTE ---
Per NSG, pt is still very fatigued this afternoon (about 13:30) and not willing to participate in speech therapy today. Will attempt speech therapy tomorrow.
--- NOTE | 2022-02-03 14:04 | OT.IP.EVAL ---
Current Diagnoses Cerebral infarction, unspecified (02/01/22) Past Medical History (Last Updated 02/02/22 @ 02:[address] [facility]) Hyperlipidemia TIA (transient ischemic attack) Surgical History (Last Updated 02/02/22 @ 02:[address] [facility]) History of dental surgery Occupational Therapy Inpatient Evaluation/Re-Eval M1 PT/OT-IP Prior Functional Status Start: 02/02/22 15:56 Freq: NEEDED Status: Active Protocol: Document 02/03/22 08:50 [facility] (Rec: 02/03/22 13:34 [facility] [id number]) Medical Review Prior Functional Status Medical History Reviewed Yes Communication able to make needs known but requires increase time to respond to questions; inconsistent with following directions Mobility and Gait pt stated that she is independent with all mobilities and ambulation without AD; still able to drive Activities of Daily Living and IADL's Pt states was completely independent with needs. Social History Household Members none Living Arrangements House Number of Floors (Floors) One Floor Number of Stairs To Enter/Railing? no steps to enter Home Environment Standard Height Toilet,Walk in Shower,Built-In Shower Seat Home Equipment Hand Held Shower,Grab Bars In Shower Additional Social History Comment son stated that he can stay with her if needed and other family members can also assist pt M2 OT-IP Current Condition Start: 02/03/22 13:15 Freq: Status: Active Protocol: Document 02/03/22 08:50 [facility] (Rec: 02/03/22 13:34 [facility] [id number]) Occupational Therapy Current Condition Current Condition Evaluation Date 02/03/22 Treatment Diagnosis CVA, FLU A, UTI Diagnosis Onset Date 02/01/22 M3 OT- IP Subjective and Pain Start: 02/03/22 13:15 Freq: Status: Active Protocol: Document 02/03/22 08:50 [facility] (Rec: 02/03/22 13:34 [facility] [id number]) OT- Subjective Occupational Therapy Visit Type Type Initial Evaluation Visit Start Time 12:00 Visit Stop Time 12:53 Total Visit Minutes 53 Occupational Therapy Visit Comments Patient Comments Pt agreed to get up for OT eval, pt's son in the room. Patient/Caregiver Goals To get better. OT Pain Assessment Pain When Pain Assessed At Rest Pain Present Pain Present Denied Pain M4 OT- IP ADL's Start: 02/03/22 13:15 Freq: Status: Active Protocol: Document 02/03/22 08:50 [facility] (Rec: 02/03/22 13:34 [facility] [id number]) OT [id number] General Evaluation Areas Needing Assistance Cutting Food,Loading Utensil, Opening Containers Comments OT Self-Feeding Comments Pt will need assist for set-up due to decreased coordination and strength of right hand. OT ADL-Grooming Comments OT Grooming Comments Not performed. OT ADL-Oral Care Comments Oral Care Comments NOt performed. OT ADL-Dressing Comments OT Dressing Comments Pt having more difficulty with right hand and relying on left hand to assist with ADL's more now. OT ADL-Toileting Comments OT Toileting Comments No performed. OT ADL-Bathing Comments OT Bathing Comments Pt will benefit from having a shower chair to use in the shower due to being a little unsteady on her feet now. M5 OT- IP IADL's Start: 02/03/22 13:15 Freq: Status: Active Protocol: Document 02/03/22 08:50 [facility] (Rec: 02/03/22 13:34 [facility] [id number]) OT-Instrumental Activities of Daily Living Deficits IADL Deficits Identified Deficits Home Safety Awareness Awareness of Need for Assistance at Home Good Awareness Ability to Problem Solve Emergency Able to Problem Solve Situations Home Safety Comments Pt has a very supportive family to be able to assist pt for all her needs at this time. Pt able to answer all home safety questions with good accuracy. Medication Management Medication Management Comments At this time pt having difficulty with her thinking and would be best to have assist for all IADL needs especially and supervision for ADl needs. Money Management Money Management Comments Pt would benefit from assist at this time. Meal Preparation Meal Preparation Comments Pt would benefit from assist at this time. Accounting Machine Operator Accounting Machine Operator Comments Pt would benefit from assist at this time. Driving Driving Concerns Identified Regarding Safety M6 OT- IP Functional Cognition Start: 02/03/22 13:15 Freq: Status: Active Protocol: Document 02/03/22 08:50 [facility] (Rec: 02/03/22 13:34 [facility] [id number]) Cognitive Factors Limiting Selfcare Function Cognitive Ability Level of Alertness Alert Patient Orientation Name,Place,Situation Attention Span Ability Capable of Focused Attention, Capable of Sustained Attention Ability to Follow Commands Able to Follow One Step Commands Problem Solving Ability Needs Assist to Identify Solutions Executive Function Ability Unable to Organize Plans, Unable to Remember Details Cognitive Comments Cognitive Assessment Comments Pt has the FLU and also UTI which may be impacting her ability to think well at this time. Pt having difficulty to get the words out as well. Pt not able to get herself to sequence from numbers to letters in sequential order at this time. It would be good to reassess her cognition once her UTI clears. At this time would be best for pt to have 24/7 available assist at home. OT- Vision and Hearing OT- Hearing Assessment OT- Hearing Assessment WFL OT- Vision Assessment Visual Acuity Glasses For Reading Visual Attentiveness WFL Occular Pursuits WFL Visual Renteria WFL M7 OT- IP Mobility and Balance Start: 02/03/22 13:15 Freq: Status: Active Protocol: Document 02/03/22 08:50 [facility] (Rec: 02/03/22 13:34 [facility] [id number]) OT- Bed Mobility Assessment Supine to Sit Supine to Sit Assist Standby Assistance Sit to Supine Sit to Supine Assist Standby Assistance OT- Balance Assessment Sitting Balance and Reactions Static Sitting Balance Ability Good Dynamic Sitting Balance Ability Fair M8 OT- IP Objective Assessments Start: 02/03/22 13:15 Freq: Status: Active Protocol: Document 02/03/22 08:50 [facility] (Rec: 02/03/22 13:34 [facility] [id number]) OT Gross Range of Motion Upper Extremity Range of Motion Assessment Right Impaired ROM Impairments RUE limited at end ROM for shoulder flexion. Pt not able to fully close her right and unable touch to thumb to fingers at this time. 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 Intact for light touch. Decreased proprioception for right hand/wrist and left fingers. Increased time for finger tapping right hand greater than left hand. M9 OT- IP Assessment and Plan Start: 02/03/22 13:15 Freq: Status: Active Protocol: Document 02/03/22 08:50 [facility] (Rec: 02/03/22 13:34 [facility] [id number]) OT Summary Assessment and Plan Potential Rehabilitation Potential Good Analytic Complexity at Evaluation Moderate Summary OT Impairments Pain,Range of Motion,Strength, Balance,Functional Cognition, Functional Mobility,Self- Feeding,Grooming,Dressing, Toileting,Bathing,Toilet Transfers,Shower Transfers, Activity Tolerance Progress Towards Goals Slow Progress due to Medical Issues,Slow Progress due to Activity Tolerance,Slow Progress due to Cognition Assessment Summary Pt HIgh complexity as having CVA, FLU and UTI and now needing assist for executive cognitive functioning, assist with right hand coordination and for high level balance needs, Pt will greatly benefit from outpt PT,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 Goals Grooming Goal Standby Assistance Dressing Goal Minimal Assistance Toileting Goal Standby Assistance Bathing Goal Standby Assistance Toilet Transfer Goal Independent Shower Transfer Goal Independent Days to Meet Goals 20 Frequency of Treatment Frequency Of Treatment Once a Day Treatment Plan OT Treatment Plan ADL Training,Functional Cognition Training,Functional Mobility,Patient/Family Education,Discharge Planning Discharge Recommendations Transportation Needs at Discharge Private Vehicle
--- NOTE | 2022-02-03 15:39 | PT.IPTN ---
Current Diagnoses Cerebral infarction, unspecified (02/01/22) Physical Therapy Treatment Note M2 PT-IP Current Condition Start: 02/02/22 15:56 Freq: NEEDED Status: Active Protocol: Document 02/03/22 16:13 TS (Rec: 02/03/22 16:37 TS [id number]) Physical Therapy Current Condition Current Condition Evaluation Date 02/02/22 Treatment Diagnosis Influenza A; L CVA; difficulty in walking Onset Date 02/01/22 M3 PT-IP Subjective Start: 02/02/22 15:56 Freq: NEEDED Status: Active Protocol: Document 02/03/22 16:13 TS (Rec: 02/03/22 16:37 TS [id number]) Subjective Physical Therapy Visit Type Type Treatment Note Visit Start Time 03:10 Visit Stop Time 03:39 Total Visit Minutes 29 Notes ANATOLY Tubbs lead treatment under the supervision of FELISHA Rodríguez. Son in room. Vitals: Supine: 126/55, 71HR Sittin/59, 70HR Number of NATIONAL SALES Visits 1 Physical Therapy Visit Comments Patient Comments Pt agreeable to PT session. M4 PT-IP Mobility and Gait Start: 02/02/22 15:56 Freq: NEEDED Status: Active Protocol: Document 02/03/22 16:13 TS (Rec: 02/03/22 16:37 TS [id number]) PT-Bed Mobility Assessment Supine to Sit Supine to Sit Standby Assistance Scooting Scooting to Edge of Bed Standby Assistance PT-Transfer Assessment Sit to and From Stand Sit to and from Stand Standby Assistance Equipment Transfer Assistive Device Gait Belt,Front Wheeled Walker Orthotic/Prosthetic Devices or Brace: No Transfers Transfer Destination Chair Transfer Technique Stand Pivot Transfer Ability Level of Assist Contact Guard Assistance,Use of Upper Extremities Comments Mobility Comments Pt found resting in bed with son in room, agreeable to PT session. Pt instructed in opposition ex/towel squeeze with R hand to improve grasp for FWW use. Pt performed supine to sit and scooted to EOB SBA. Pt stood with no AD before therapist had room set up, instructed in use of FWW for standing and ambulation around room. Pt performed SBA sit to stand x1 with pivot transfer to bedside chair. Pt required cues for handplacement on arms of chair to come into to standing and not on FWW with sit to stands x2, pt demonstrated some tipping of FWW. Pt ambulated around room x60' CGA, demonstrated a NBOS and swaying. Pt reported feeling unsteady. Pt demonstrated good carryover of stand of sit sequence after ambulation. She was left in bedside chair, with call light and tray nearby, son in room. Gait Assessment Gait Gait Assistance Required: Contact Guard Assist Distance (Feet) 60 Able to Maintain Weight Bearing Status Yes During Gait Assistive Devices Assistive Device Gait Belt,Front Wheeled Walker Orthotic/Prosthetic Devices or Brace: No Gait Deviations General Gait Pattern Ataxic,Decreased Stride Length ,Decreased Feet Clearance,Step -to Gait Factors Limiting Gait Function Factors Limiting Gait Function Decreased Activity Tolerance, Decreased Strength,Poor Balance,Poor Safety Awareness Comments Gait Comments See mobility comments PT-Balance Assessment Sitting Balance and Reactions Static Sitting Balance Ability Normal Dynamic Sitting Balance Ability Good Standing Balance and Reactions Static Standing Balance Ability Good Dynamic Standing Balance Ability Fair Device Used FWW Comments Other Balance Tests/Deviations/Treatment Pt demonstrates ability to : stand with no AD but instructed on use of FWW for unsteadiness. Sit normally on EOB. M5 PT-IP Objective Assessments Start: 02/02/22 15:56 Freq: NEEDED Status: Active Protocol: Document 02/02/22 14:25 AB (Rec: 02/02/22 16:21 AB [id number]) Orientation Orientation/Cognition Level of Alertness Alert Orientation Name,Place,Situation Language Function Ability Word Finding Difficulties Safety Awareness Decreased Safety Awareness Memory Description No Deficits Noted Comments inconsistent with following directions Gross Range of Motion Lower Extremity ROM Assessment Within Functional Limits Strength Lower Extremity Strength Assessment Left Impaired Comments Strength Comments LLE: 3+/5 RLE: 4-/5 Muscle Tone Muscle Tone WNL Yes M6 PT-IP Treatment Start: 02/02/22 15:56 Freq: NEEDED Status: Active Protocol: Document 02/03/22 16:13 TS (Rec: 02/03/22 16:37 TS [id number]) Physical Therapy Treatment Education Education Provided Safety M7 PT-IP Assessment and Plan Start: 02/02/22 15:56 Freq: NEEDED Status: Active Protocol: Document 02/03/22 16:13 TS (Rec: 02/03/22 16:37 TS [id number]) PT Summary Assessment and Plan Potential Rehabilitation Potential Fair Status of Condition at Evaluation Evolving Summary Impairments Pain,ROM,Strength,Balance, Coordination,Sensation,Tone, Cognition,Bed Mobility, Transfers,Gait,Activity Tolerance Progress Towards Goals Progressing Toward Goals,Slow Progress due to Activity Tolerance Assessment Summary Pt can be impulsive to stand and ambulate when therapist is not ready. She was instructed in opposition ex/towel squeeze of R hand to improve function with grasp on FWW. Pt was SBA for bed mobility and sit to stands. Required CGA for ambulation with FWW due to unsteadiness. PT is currently recommending home with 24/7 assistance with ADLs and outpaitent PT when medically cleared. Goals Bed Mobility Goal Independent Transfer Goal Independent Gait Goal Independent Gait Distance 200 Days to Meet Goals 5 Frequency of Treatment Frequency Of Treatment Once a Day Treatment Plan Physical Therapy Treatment Plan Bed Mobility Training,Transfer Training,Gait Training, Therapeutic Exercise,Balance Retraining,Discharge Planning, Hot or Cold Pack,Neuromuscular Re-ed,Coordination Retraining ,Manual Therapy Precautions Other Precautions Droplet: Influenza A Recommendations To Nursing Amount of Assist Needed 1 Person Assist Discharge Recommendations PT Discharge Recommendations Home with Assistance,Home with 24/7 Assist Available,Home Health,Outpatient PT Transportation Needs at Discharge Private Vehicle
[2022-02-03 16:00] VITALS: BP 125/60; PULSE 65; RESP 16; TEMP 36; O2SAT 96
[2022-02-03] MEDS: ATORVASTATIN 20 MG TABLET 80 MG PO (21:09)
[2022-02-03] MEDS: MELATONIN 3 MG TABLET 6 MG PO (21:09)
[2022-02-03 21:15] VITALS: BP 124/60; PULSE 70; RESP 20; TEMP 36.2; O2SAT 93
[2022-02-04 03:00] VITALS: BP 120/60; PULSE 97; RESP 14; TEMP 36.1; O2SAT 97
[2022-02-04 07:40] LABS: PTT Partial Thromboplastin Tim 58 SECONDS (26-36)
[2022-02-04 07:43] LABS: BUN Creatinine Ratio 27.7 (6-22); Blood Urea Nitrogen 18 mg/dL (7-17); Calcium 8.3 mg/dL (8.4-10.2); Carbon Dioxide 28 mmol/L (22-32); Chloride 101 mmol/L (98-107); Estimated Glomerular Filt Rate > 60 mL/min (>60); Glucose 103 mg/dL (80-110); HEMOLYSIS < 15 (0-50); Potassium 4.2 mmol/L (3.4-5.1); Sodium 136 mmol/L (137-145)
--- NOTE | 2022-02-04 08:08 | PM.PN.1 ---
Subjective Subjective Date Patient Seen: 02/04/22 Interval history: Patient has no complaints. Repeat CTA head/neck today showed no change in ICA clot. Exam Vital Signs (past 8 hours): - 02/04/22 03:00 Temperature 96.9 F L Pulse Rate 97 H Respiratory Rate 14 Blood Pressure 120/60 Pulse Oximetry 97 Oxygen Flow Rate 0 Oxygen Delivery Method Room Air Oxygen Flow Rate 0 Narrative Exam Narrative: General: Patient is a soft-spoken small framed fit well-groomed elderly female in no distress at this time. HEENT: Normocephalic, atraumatic, extraocular muscles intact, oral pharynx is clear and mucous membranes are moist. Neck is supple and symmetric, trachea is midline, no adenopathy, no thyroid enlargement, nontender, no masses palpated. Negative for JVD Chest: Normal AP diameter and contour without kyphoscoliosis, no nasal flaring, retractions, or tachypneic labored Lungs: Auscultation of all lung chrsitopher are clear without adventitious sounds, wheezes, rhonchi, or rales. Cardio: regular rate and rhythm without murmur, rubs, or gallops, no carotid bruit, no cardiac pulsations present. Abdomen: Soft nontender, negative for organomegaly, or masses. Bowel sounds are present in all 4 quadrants without guarding or rebound, no CVA tenderness. Musculoskeletal: Muscle strength and tone are equal within normal limits, no deformity, crepitus, effusions, cyanosis, clubbing or edema present. Full range of motion intact radial and pedal pulses are normal. Skin: Warm dry and intact without rashes, ulcerations or petechiae. Neuro: Alert and orientated x3, strength is +5/5 in left upper ext but 4/5 and right upper ext, sensation to touch intact, no gross deficits noted of cranial nerves. Noted right programs manager is slightly decreased over left. Psych: Patient has a well-kept appearance, patient has a flat affect, unengaged avoids eye contact, appears to be withdrawn and not processing information or participating in decision-making regarding her care. Her vvdideru-nc-ojk who is at the bedside describes her baseline as very independent, always on the go very intellectually and physically active, engaging. Objective Labs Result Diagrams: 02/04/22 07:17 02/04/22 07:17 Labs: Laboratory Results - last 24 hr 02/04/22 07:17 Sodium 136 L Potassium 4.2 Chloride 101 Carbon Dioxide 28 BUN 18 H Creatinine 0.65 Estimated GFR > 60 BUN/Creatinine Ratio 27.7 H Glucose 103 Calcium 8.3 L [facility] Medical History (Updated 02/02/22 @ 02:41 by GLORIA Auguste-CHRISTINE) Hyperlipidemia TIA (transient ischemic attack) Surgical History (Updated 02/02/22 @ 02:40 by PANCHITO Auguste) History of dental surgery Family History Father Heart attack Mother Heart attack Stroke Social History household members: none Smoking Status: Never smoker Assessment & Plan Assessment & Plan narrative: 1. Acute left hemisphere multifocal infarcts, small, with mild cognitive impairment, present on admission -symptoms numbness tingling and weakness of the right hand and arm, slurred speech word-finding difficulties and mild cognitive impairment.-mild cognitive impairment appears to continue other symptoms have resolved -NIH:0 on admit GCS 14 -tele stroke consult Dr. Plummer and Dr. Amado -MRI of the brain demonstrated multifocal small infarcts in the left hemisphere. -head CT, chest x-ray were negative for any acute intracranial or cardiopulmonary processes -echo 02/02 with EF 55-60% and no focal WMA's, but mod calcification of subvalvular appartus and significant calcification along aortic-mitral curtion which may be a potential source for embolic events -continue ASA 81mg daily and lipitor 80mg nightly -see heparin drip protocol below -EKG sinus rhythm with a ventricular rate of [address] or T-wave changes I personally reviewed this. -started lexapro daily for depression prevention, son agrees to low dose -repeat CTA head/neck 02/04 with unchanged 1.5cm L ICA intraluminal clot 2. 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 .? Thrombus extends for approximately 1.5 cm in length, and mild atherosclerotic plaque and calcification in the common carotid arteries and carotid bifurcations bilaterally. -patient to be placed on heparin drip APTT goal 50-70 once patient reaches goal range patient to have a head CT completed, after 3 days on heparin drip repeat CTA to determine if thrombosis has been dissolved. If not repeat CTA again after 3 days. Recommended average heparin drip approximately 5-7 days. -consult with tele stroke Dr. Plummer/Dr. Amado -patient given an initial dose of 325 ASA, to be followed 81 mg q.day in addition to heparin. 3. Hyperlipidemia, with a history of TIA, acute stroke, chronic, present on admission -will replace patient's simvastatin with Lipitor at 80mg - total cholesterol 207, LDL 148, HDL 38 4. Influenza a, acute, present on admission -patient had been diagnosed with the flu approximately 4 days ago and had been on Tamiflu will continue for a total of 10 days. -symptom management, respiratory consult, respiratory support as needed Code status:FULL Surrogate decision maker: Daughter Radha YE PCR:Negative DVT/VTE prophylaxis: Heparin drip, SCDs only Disposition: Will be 3-5 days pending CTA evidence of resolved L carotid intraluminal thrombus. Time Spent With Patient Critical Care time: I spent a total of [] minutes of critical care time on this patient's care today; this time is exclusive of procedural time.
--- NOTE | 2022-02-04 08:09 | DI.CT.S_ITS ---
PROCEDURE: CT ANGIO HEAD AND NECK INDICATIONS: Assess for resolution of L ICA intraluminal thrombus TECHNIQUE: Pre-contrast 4.5 mm thick sections acquired from the foramen magnum to the vertex. After the administration of intravenous contrast, 1 mm thick sections acquired from the aortic arch through the [place] of [place]. Post-contrast 4.5 mm thick sections then re-acquired from the foramen magnum to the vertex. 3-dimensional nrczxfm-pilccwbkp-pcsuedvshf (MIP) and/or volume rendering reformats were acquired of the central intracranial vasculature and neck separately. For radiation dose reduction, the following was used: automated exposure control, adjustment of mA and/or kV according to patient size. COMPARISON: [facility], CT, CT ANGIO HEAD AND NECK, 02/01/2022, 13:53. [facility], MR, MR HEAD/BRAIN WO CON, 02/01/2022, 18:15. FINDINGS: Image quality: Excellent. BRAIN: No acute intracranial hemorrhage, abnormal extra-axial fluid collection, mass effect, or midline shift. No grayscale CT changes to correspond with the numerous small infarcts seen in the left cerebral hemisphere comparison MRI. HEAD CT ANGIOGRAPHY: No hemodynamically significant stenosis or occlusion of the major intracranial arterial circulation. NECK CT ANGIOGRAPHY: Left ICA thrombus is unchanged. Atherosclerotic calcifications in the bilateral carotid bifurcations and ICA origins appears unchanged. Vertebral arteries widely patent. IMPRESSION: Unchanged left ICA thrombus when compared with 02/01/2022 CT angiogram of the head and neck. No CT grayscale changes in the left cerebral hemisphere to correspond with numerous small infarcts. Any quantitative measurements of stenosis were performed using NASCET criteria. Dictated by: Guzman Haas M.D. on 02/04/2022 at 8:10 Approved by: Guzman Haas M.D. on 02/04/2022 at 8:14
[2022-02-04 08:10] LABS: Add Manual Diff / Slide Review NO; Basophils Absolute Auto 0 /uL (0-100); Basophils Percent Auto 0.8 % (0-2); Eosinophils Absolute Auto 100 /uL (0-450); Eosinophils Percent Auto 1.7 % (2-4); Hematocrit 32.7 % (36-46); Hemoglobin 11.3 g/dL (12.0-16.0); Lymphocytes Absolute Auto 1600 /uL (1100-4500); Lymphocytes Percent Auto 35.1 % (25-40); Mean Corpuscular HGB Conc 34.7 % (30-36); Mean Corpuscular Hemoglobin 33.3 PG (26-34); Mean Corpuscular Volume 96.1 fL (80-100); Monocytes Absolute Auto 700 /uL (0-900); Monocytes Percent Auto 14.7 % (3-14); Neutrophils Absolute Auto 2100 /uL (1500-7000); Neutrophils Percent Auto 47.7 % (50-75); Platelet Count 368 X10^3/uL (150-400); Red Cell Distribution Width 12.4 % (11.6-14.8); White Blood Cell Count 4.5 X10^3/uL (4.5-11.0)
[2022-02-04 08:48] VITALS: BP 114/57; PULSE 68; RESP 18; TEMP 36.3; O2SAT 94
[2022-02-04] MEDS: ASPIRIN EC 81 MG TABLET PO (10:41)
[2022-02-04] MEDS: ESCITALOPRAM 10 MG TABLET PO (10:42)
--- NOTE | 2022-02-04 11:03 | ST.IPTN ---
Visit Care Team Role Provider Type Kory Muir DO Emergency Provider Physician Referring Provider Address: [address] [place] [address], [id number] Ángel Barraza DO Admit Provider Physician Attending Provider Address: [address] [place] [address], [id number] [facility] Treatment Note [facility] W[facility]ER Treatment Note Start: 02/04/22 10:49 Freq: Status: Active Protocol: Document 02/04/22 10:50 ZS (Rec: 02/04/22 11:03 ZS [id number]) Speech Pathology Treatment Note Session Time Visit Start Time 10:00 Visit Stop Time 10:20 Total Visit Minutes 20 Visit Information Visit Number 1 Setting Treatment Setting Acute Care Visit Type Note Type Treatment Note Next Note Type Next Note Type Treatment Note General Information Patient History Per H&P: Brandi Woodward is an 81-year-old female with a history of TIA and takes daily aspirin 81 mg who presented to the ED with her family today stating that she has been having tingling numbness and weakness to the right hand for approximately 4 days, today the family noticed slurring of words which appears to be more word- finding and confusion difficulties which the family states is not her baseline. Patient was also diagnosed with Flu 4 days ago, and was placed on Tamiflu. She also apparently was given doxycycline for a possible pneumonia diagnosis the family was unsure. Patient did have an NIH:0, GCS: 14 in the ED. at the time of admit patient's [id number]-ns-[id number] was at bedside states that patient normally walks 3 miles a day and volunteers several times a week, and is extremely active and independent. Patient is lying in the bed very flat affect not engaging in conversation minimal dzwoyfljuux-sfxfijep-ox-law states this is not her baseline. Patient denies chest pain, shortness breast, fever, body aches, chills, abdominal pain, nausea, vomiting, diarrhea, blood in urine or stool, urinary frequency urgency dysuria, recent falls head injuries, skin injuries or open wounds, recent illness, or changes to her medication. Subjective Identification Type Name Identification Reconciled With Medical Record Others Present Family Observations/Patient Presentation Brandi was reclined in bed with relative at bedside when [facility] SPRING WINDER arrived. Her eyes were open and she greeted [facility] SPRING WINDER verbally upon entry to room. Brandi reported increased energy today and agreed to participate in all session activities. Brandi's rate of speech was slow and halted. She would stop talking mid- sentence as she tried to find a word and then abandon the sentence she was saying. Brandi showed [facility]ING WINDER a note she had written remote control on as she had identified this as a word she was having trouble recalling. Brandi repeated the word to herself several times as she replaced the paper on the bedside table. Chief Complaint(s) Language Objective Short Term Goals 1. Pt will independently use word finding strategies during unstructured conversation. 2. Pt will complete confrontation naming tasks with 100% accuracy using word finding strategies independently. 3. Pt will participate in cognitive screening. Treatment Activities Reviewed word finding strategies provided in previous session. Probed automatic speech, filling in sentences, completing common opposites, naming to description task, following directions, and identifying named body parts. Assessment Assessment of Overall Progress Improving Assessment of Improvement Brandi demonstrated difficulty in automatic phrases, as identified by missing g and h while saying the alphabet, inability to name vowels, and missing Tuesday when naming the days of the week. When given verbal prompts, Brandi filled in the missing information, though stated she is not familiar with the vowel saying (e.g., a, e, i, o, u, and sometimes y). Brandi filled in sentences with 100% accuracy (5/5 opportunities). She was slow to identify opposites, but given processing time, she identified 5/5 opposites with 100% accuracy. 100% accuracy with naming to description, following directions and identifying named body parts. At the end of the session, Brandi recalled remote control during confrontation naming task without looking at her note. Discussed using note to write down words she notices she is consistently having difficulty recalling, as she did with remote control, to help improve recall of these words. Pt expressed understanding and agreement with POC. Reviewed with Patient Goals,Progress Being Made,Home Exercise Program Patient/Caregiver Understanding Good Plan Therapeutic Contents Cognitive-Linguistic Training, Expressive Language Training Provided Patient/Caregiver Instruction Home Exercise Program,Plan of Care,Questions/Concerns Therapy Recommendations Continue with Current Program
--- NOTE | 2022-02-04 11:58 | PT.IPTN ---
Current Diagnoses Cerebral infarction, unspecified (02/01/22) Physical Therapy Treatment Note M2 PT-IP Current Condition Start: 02/02/22 15:56 Freq: NEEDED Status: Active Protocol: Document 02/04/22 11:48 [facility] (Rec: 02/04/22 11:58 [facility] [id number]) Physical Therapy Current Condition Current Condition Evaluation Date 02/02/22 Treatment Diagnosis Influenza A; L CVA; difficulty in walking Onset Date 02/01/22 M3 PT-IP Subjective Start: 02/02/22 15:56 Freq: NEEDED Status: Active Protocol: Document 02/04/22 11:48 [facility] (Rec: 02/04/22 11:58 [facility] [id number]) Subjective Physical Therapy Visit Type Type Treatment Note Visit Start Time 11:10 Visit Stop Time 11:40 Total Visit Minutes 30 Physical Therapy Visit Comments Patient Comments Pt agreeable to PT session. M4 PT-IP Mobility and Gait Start: 02/02/22 15:56 Freq: NEEDED Status: Active Protocol: Document 02/04/22 11:48 [facility] (Rec: 02/04/22 11:58 [facility] [id number]) PT-Bed Mobility Assessment Supine to Sit Supine to Sit Standby Assistance Scooting Scooting to Edge of Bed Standby Assistance PT-Transfer Assessment Sit to and From Stand Sit to and from Stand Standby Assistance Equipment Transfer Assistive Device Gait Belt,Front Wheeled Walker Orthotic/Prosthetic Devices or Brace: No Transfers Transfer Destination Toilet Transfer Technique pt ambulated to the bathroom Transfer Ability Level of Assist Contact Guard Assistance Comments Mobility Comments pt demonstrated SBA for all bed mobility and CGA for transfers Gait Assessment Gait Gait Assistance Required: Contact Guard Assist Distance (Feet) 60 Able to Maintain Weight Bearing Status Yes During Gait Assistive Devices Assistive Device Gait Belt Orthotic/Prosthetic Devices or Brace: No Gait Deviations General Gait Pattern Ataxic,Decreased Stride Length ,Decreased Feet Clearance,Step -to Gait Comments Gait Comments pt did better today with out the fww and CGA. She initially used the fww to ambulate to the bathroom, pt had a bowel movement and voided and then stood x 5 min for brief change and to assist with wiping. She then ambulated with CGA in room without a assistive device. Pt was then transfered to the bedside chair. She was positioned comfortably in the chair and her call light was left within reach. The chair alarm was placed and pt was instructed to call for nursing if she needed to use the bathroom again as it isn't safe to get up on her own. PT-Balance Assessment Sitting Balance and Reactions Static Sitting Balance Ability Normal Dynamic Sitting Balance Ability Good Standing Balance and Reactions Static Standing Balance Ability Good Dynamic Standing Balance Ability Fair Device Used without AD M5 PT-IP Objective Assessments Start: 02/02/22 15:56 Freq: NEEDED Status: Active Protocol: Document 02/02/22 14:25 AB (Rec: 02/02/22 16:21 AB [id number]) Orientation Orientation/Cognition Level of Alertness Alert Orientation Name,Place,Situation Language Function Ability Word Finding Difficulties Safety Awareness Decreased Safety Awareness Memory Description No Deficits Noted Comments inconsistent with following directions Gross Range of Motion Lower Extremity ROM Assessment Within Functional Limits Strength Lower Extremity Strength Assessment Left Impaired Comments Strength Comments LLE: 3+/5 RLE: 4-/5 Muscle Tone Muscle Tone WNL Yes M6 PT-IP Treatment Start: 02/02/22 15:56 Freq: NEEDED Status: Active Protocol: Document 02/04/22 11:48 [facility] (Rec: 02/04/22 11:58 [facility] [id number]) Physical Therapy Treatment Exercises Exercises Ankle Pumps Education Education Provided Safety Other Treatments Other Treatment Performed pt was assisted with donning her brief and cleaning up after a bowel movement M7 PT-IP Assessment and Plan Start: 02/02/22 15:56 Freq: NEEDED Status: Active Protocol: Document 02/04/22 11:48 [facility] (Rec: 02/04/22 11:58 [facility] [id number]) PT Summary Assessment and Plan Potential Rehabilitation Potential Fair Status of Condition at Evaluation Evolving Summary Impairments Pain,ROM,Strength,Balance, Coordination,Sensation,Tone, Cognition,Bed Mobility, Transfers,Gait,Activity Tolerance Progress Towards Goals Progressing Toward Goals,Slow Progress due to Activity Tolerance Assessment Summary Pt can be impulsive to stand and ambulate when therapist is not ready. She was instructed in opposition ex/towel squeeze of R hand to improve function with grasp on FWW. Pt was SBA for bed mobility and sit to stands. Required CGA for ambulation with FWW due to unsteadiness. PT is currently recommending home with 24/7 assistance with ADLs and outpaitent PT when medically cleared. Goals Bed Mobility Goal Independent Transfer Goal Independent Gait Goal Independent Gait Distance 200 Days to Meet Goals 5 Frequency of Treatment Frequency Of Treatment Once a Day Treatment Plan Physical Therapy Treatment Plan Bed Mobility Training,Transfer Training,Gait Training, Therapeutic Exercise,Balance Retraining,Discharge Planning, Hot or Cold Pack,Neuromuscular Re-ed,Coordination Retraining ,Manual Therapy Other Recommendations and Next Treatment continue progressing gait Focus distance and endurance for gait in room Precautions Other Precautions Droplet: Influenza A Recommendations To Nursing Amount of Assist Needed 1 Person Assist Discharge Recommendations PT Discharge Recommendations Home with Assistance,Home with 20/09 Assist Available,Home Health,Outpatient PT Transportation Needs at Discharge Private Vehicle
--- NOTE | 2022-02-04 12:40 | OT.IP.TRT ---
Current Diagnoses Cerebral infarction, unspecified (02/01/22) Occupational Therapy Treatment Note M2 OT-IP Current Condition Start: 02/03/22 13:15 Freq: Status: Active Protocol: Document 02/03/22 08:50 [facility] (Rec: 02/03/22 13:34 [facility] [id number]) Occupational Therapy Current Condition Current Condition Evaluation Date 02/03/22 Treatment Diagnosis CVA, FLU A, UTI Diagnosis Onset Date 02/01/22 M3 OT- IP Subjective and Pain Start: 02/03/22 13:15 Freq: Status: Active Protocol: Document 02/04/22 12:00 [facility] (Rec: 02/04/22 13:24 [facility] [id number]) OT- Subjective Occupational Therapy Visit Type Visit Start Time 12:00 Visit Stop Time 12:40 Total Visit Minutes 40 Occupational Therapy Visit Comments Patient Comments Pt wanting to shower, but due to her having continuous IV, sponge bath was performed instead. Patient/Caregiver Goals To go home. OT Pain Assessment Pain When Pain Assessed At Rest Pain Present Pain Present Denied Pain M4 OT- IP ADL's Start: 02/03/22 13:15 Freq: Status: Active Protocol: Document 02/04/22 12:00 [facility] (Rec: 02/04/22 13:24 [facility] [id number]) OT VUM-Aegu-Ygtdzqv General Evaluation Self-Feeding Ability Standby Assistance Comments OT Self-Feeding Comments Pt using her left hand to eat and needing some assist to open items. OT ADL-Grooming Comments OT Grooming Comments Not performed. OT ADL-Oral Care Comments Oral Care Comments NOt performed. OT ADL-Dressing General Eval Lower Body Dressing Ability Standby Assistance Comments OT Dressing Comments Pt able to lean forwards to johnathon/doff her socks over her feet. Pt able to lower her brief while standing to do pericare needs during sponging off. OT ADL-Toileting Comments OT Toileting Comments No performed. OT ADL-Bathing Bathing Type Bathing Type Sponge Bath General Evaluation Bathing Ability Minimal Assistance Comments OT Bathing Comments Pt just needing assist to wash her back and needing cues for completeness to wipe from front to back to prevent risk of infection. M6 OT- IP Functional Cognition Start: 02/03/22 13:15 Freq: Status: Active Protocol: Document 02/04/22 12:00 [facility] (Rec: 02/04/22 13:24 [facility] [id number]) Cognitive Factors Limiting Selfcare Function Cognitive Comments Cognitive Assessment Comments Pt still at times having difficulty to get the words out. Pt able to sequence task of eating and sponge bathing with no problems today. M7 OT- IP Mobility and Balance Start: 02/03/22 13:15 Freq: Status: Active Protocol: Document 02/04/22 12:00 [facility] (Rec: 02/04/22 13:24 [facility] [id number]) OT-Transfer Assessment Sit to and From Stand Sit to and from Stand Independent OT- Balance Assessment Sitting Balance and Reactions Static Sitting Balance Ability Normal Dynamic Sitting Balance Ability Good Standing Balance and Reactions Static Standing Balance Ability Good M8 OT- IP Objective Assessments Start: 02/03/22 13:15 Freq: Status: Active Protocol: Document 02/03/22 08:50 [facility] (Rec: 02/03/22 13:34 [facility] [id number]) OT Gross Range of Motion Upper Extremity Range of Motion Assessment Right Impaired ROM Impairments RUE limted at end ROM for shoulder flexion.Pt M9 OT- IP Assessment and Plan Start: 02/03/22 13:15 Freq: Status: Active Protocol: Document 02/04/22 12:00 [facility] (Rec: 02/04/22 13:24 [facility] [id number]) OT Summary Assessment and Plan Potential Rehabilitation Potential Good Analytic Complexity at Evaluation Moderate Summary OT Impairments Pain,Range of Motion,Strength, Balance,Functional Cognition, Functional Mobility,Self- Feeding,Grooming,Dressing, Toileting,Bathing,Toilet Transfers,Shower Transfers, Activity Tolerance Progress Towards Goals Slow Progress due to Medical Issues,Slow Progress due to Cognition Assessment Summary Pt able to tolerate sponging off today and able to process and sequence through ADL needs well today. Pt still having difficulty with right FMS and would benefit from outpt OT. Goals Grooming Goal Independent Dressing Goal Independent Toileting Goal Independent Bathing Goal Independent Toilet Transfer Goal Independent Shower Transfer Goal Independent Days to Meet Goals 20 Frequency of Treatment Frequency Of Treatment Once a Day Treatment Plan OT Treatment Plan ADL Training,Functional Cognition Training,Functional Mobility,Patient/Family Education,Discharge Planning Discharge Recommendations OT Discharge Recommendations Home with 20/09 Assist Available,Outpatient PT Transportation Needs at Discharge Private Vehicle
[2022-02-04 15:09] VITALS: BP 122/58; PULSE 57; RESP 18; TEMP 36.8; O2SAT 96
--- NOTE | 2022-02-04 15:40 | CM.DPNOTE ---
Addendum entered by SARAH He 02/05/22 15:42: ADD: Dr Barraza plans to discharge this evening or tomorrow. Close outpatient follow up. See his notes for detail Family requests HH, no agency preference. Patient will DC w/family to monitor. In addition, family collecting DME today to support patient at home. Patient is ambulating around the unit but does require cueing and reminders d/t lingering cog impairment- per notes Son reports concerns about getting things in place tonight to take her (patient) home. Dr Barraza has placed a discharge order. Reviewed IMM, patient's right to appeal under federal [facility] guidelines and son appreciative for the information Faxed referral to [facility] per calendar rotation. Included completed and signed F2F, demo sheet, H+P and HH order. Need to confirm receipt and fax DC Summary when available. JW Original Note: DCP Note According to conversation in multidisciplinary rounds, CTA imaging is unchanged. patient will remain admitted for anticoagulation Patient expected to discharge home when medically stable; CM team will plan to follow closely in case any DC needs arise closer to discharge BRYAN
[2022-02-04 20:45] VITALS: BP 128/55; PULSE 62; RESP 14; TEMP 36.2; O2SAT 94
[2022-02-04] MEDS: ATORVASTATIN 20 MG TABLET 80 MG PO (21:30)
[2022-02-05 06:20] VITALS: BP 123/55; PULSE 69; RESP 14; TEMP 36; O2SAT 98
[2022-02-05 07:38] LABS: PTT Partial Thromboplastin Tim 56 SECONDS (26-36)
--- NOTE | 2022-02-05 08:22 | P.PN_ITS ---
Subjective Subjective Date Patient Seen: 02/05/22 Interval history: Patient having lack of appetite today and some diarrhea. C. diff negative. Discussion was had with patient's son and niece about the potential to go home on a DOAC instead of needing to wait on a heparin drip. Exam Vital Signs (past 8 hours): - 02/05/22 06:20 Temperature 96.8 F L Pulse Rate 69 Respiratory Rate 14 Blood Pressure 123/55 L Pulse Oximetry 98 Oxygen Flow Rate 0 Oxygen Delivery Method Room Air Oxygen Flow Rate 0 Narrative Exam Narrative: General: Patient is a soft-spoken small framed fit well-groomed elderly female in no distress at this time. HEENT: Normocephalic, atraumatic, extraocular muscles intact, oral pharynx is clear and mucous membranes are moist. Neck is supple and symmetric, trachea is midline, no adenopathy, no thyroid enlargement, nontender, no masses palpated. Negative for JVD Chest: Normal AP diameter and contour without kyphoscoliosis, no nasal flaring, retractions, or tachypneic labored Lungs: Auscultation of all lung christopher are clear without adventitious sounds, wheezes, rhonchi, or rales. Cardio: regular rate and rhythm without murmur, rubs, or gallops, no carotid bruit, no cardiac pulsations present. Abdomen: Soft nontender, negative for organomegaly, or masses. Bowel sounds are present in all 4 quadrants without guarding or rebound, no CVA tenderness. Musculoskeletal: Muscle strength and tone are equal within normal limits, no deformity, crepitus, effusions, cyanosis, clubbing or edema present. Full range of motion intact radial and pedal pulses are normal. Skin: Warm dry and intact without rashes, ulcerations or petechiae. Neuro: Alert and orientated x3, strength is +5/5 in left upper ext but 4/5 and right upper ext, sensation to touch intact, no gross deficits noted of cranial nerves. Noted right title i assistant is slightly decreased over left. Psych: Patient has a well-kept appearance, patient has a flat affect, unengaged avoids eye contact, appears to be withdrawn and not processing information or participating in decision-making regarding her care. Her [id number] who is at the bedside describes her baseline as very independent, always on the go very intellectually and physically active, engaging. Objective Labs Result Diagrams: 02/04/22 07:17 02/04/22 07:17 Labs: Laboratory Results - last 24 hr 02/05/22 06:03 APTT [facility] Medical History (Updated 02/02/22 @ 02:41 by PANCHITO Auguste) Hyperlipidemia TIA (transient ischemic attack) Surgical History (Updated 02/02/22 @ 02:40 by PANCHITO Auguste) History of dental surgery Family History Father Heart attack Mother Heart attack Stroke Social History household members: none Smoking Status: Never smoker Assessment & Plan Assessment & Plan narrative: 1. Acute left hemisphere multifocal infarcts, small, with mild cognitive impairment, present on admission -symptoms numbness tingling and weakness of the right hand and arm, slurred speech word-finding difficulties and mild cognitive impairment.-mild cognitive impairment appears to continue other symptoms have resolved -NIH:0 on admit GCS 14 -tele stroke consult Dr. Plummer and Dr. Amado on admission, then again with Dr. Jean on 02/05 -MRI of the brain demonstrated multifocal small infarcts in the left hemisphere. -head CT, chest x-ray were negative for any acute intracranial or cardiopulmonary processes -echo 02/02 with EF 55-60% and no focal WMA's, but mod calcification of subvalvular appartus and significant calcification along aortic-mitral curtion which may be a potential source for embolic events -continue lipitor 80mg nightly -DOAC as below -EKG sinus rhythm with a ventricular rate of [address] or T-wave changes I personally reviewed this. -started lexapro daily for depression prevention, son agrees to low dose 2. Thrombosis, proximal left ICA, intraluminal, with moderate stenosis 50-60%, acute, present on admission -neck CTA 02/01 demonstrated within the proximal left ICA just distal to the origin there is intraluminal thrombus with moderate stenosis 50-60%. Thrombus extends for approximately 1.5 cm in length, and mild atherosclerotic plaque and calcification in the common carotid arteries and carotid bifurcations bilaterally. -consult with tele stroke Dr. Plummer/Dr. Amado who initially ordered heparin drip and rec repeat head CTA in 3 days, repeat CTA head/neck 02/04 with unchanged 1.5cm L ICA intraluminal clot -spoke with Dr. Jimenes at on 02/05 about the possibility of DOAC therapy then repeat CTA head/neck as outpatient. She said this would be appropriate along with lipitor 80 and getting a repeat CTA head/neck in 1 week as outpatient then again in 1 month. -called and spoke with Dr. Richa Abrams who has ordered repeat CTA head/neck for 1 week. Please make sure dc summary is faxed to her on discharge. She will arrange f/u appt as well. -sent xarelto 20mg daily to patient's pharmacy due to eliquis/pradaxa not on her formulary, despite cost at $428 family willing to pay this 3. Hyperlipidemia, with a history of TIA, acute stroke, chronic, present on ad mission -will replace patient's simvastatin with Lipitor at 80mg - total cholesterol 207, LDL 148, HDL 38 4. Influenza a, acute, present on admission -patient had been diagnosed with the flu approximately 4 days ago and had been on Tamiflu will continue for a total of 10 days. -symptom management, respiratory consult, respiratory support as needed Code status:FULL Surrogate decision maker: Daughter Radha YE PCR:Negative DVT/VTE prophylaxis: Heparin drip, SCDs only Disposition: Home with 02/06. Time Spent With Patient Critical Care time: I spent a total of [] minutes of critical care time on this patient's care today; this time is exclusive of procedural time.
[2022-02-05] MEDS: ESCITALOPRAM 10 MG TABLET PO (08:33)
[2022-02-05] MEDS: ASPIRIN EC 81 MG TABLET PO (08:33)
--- NOTE | 2022-02-05 11:11 | PC.NURSE ---
Addendum entered by Lory Ramey R.N. 02/05/22 11:35: Patients son out and asked if he could get access to patients medical records. Had patient sign paperwork for that. Explained to them that they can also sign up on the [facility] portal for information, and gave them the phone number to medical records. Patient is back in bed, she was able to sign her name to paperwork. Addendum entered by Lory Ramey R.N. 02/05/22 11:29: Patients NIH scale is a 2 at this time. Original Note: Patient is having some word finding problems, speech therapist into see patient and went over some things to help her work on this. She was up with one person assist and walker to use the bathroom. Patient has some blood on toilet paper from irritation, but no blood in her stool. She is able to lift her arms and legs up and down. Smile is symmetrical, and patient does answer questions appropriately. Sitting up in the chair after working with physical therapy. Patient is comfortable.
--- NOTE | 2022-02-05 11:47 | OT.IP.TRT ---
Current Diagnoses Cerebral infarction, unspecified (02/01/22) Occupational Therapy Treatment Note M2 OT-IP Current Condition Start: 02/03/22 13:15 Freq: Status: Active Protocol: Document 02/03/22 08:50 [facility] (Rec: 02/03/22 13:34 [facility] [id number]) Occupational Therapy Current Condition Current Condition Evaluation Date 02/03/22 Treatment Diagnosis CVA, FLU A, UTI Diagnosis Onset Date 02/01/22 M3 OT- IP Subjective and Pain Start: 02/03/22 13:15 Freq: Status: Active Protocol: Document 02/05/22 11:38 [facility] (Rec: 02/05/22 12:10 [facility] [id number]) OT- Subjective Occupational Therapy Visit Type Type Treatment Note Visit Start Time 11:38 Visit Stop Time 11:47 Total Visit Minutes 9 Occupational Therapy Visit Comments Patient Comments Pt agreed to work on FMS with right hand. Patient/Caregiver Goals To go home. OT Pain Assessment Pain When Pain Assessed At Rest Pain Present Pain Present Denied Pain M7 OT- IP Mobility and Balance Start: 02/03/22 13:15 Freq: Status: Active Protocol: Document 02/04/22 12:00 [facility] (Rec: 02/04/22 13:24 [facility] [id number]) OT-Transfer Assessment Sit to and From Stand Sit to and from Stand Independent OT- Balance Assessment Sitting Balance and Reactions Static Sitting Balance Ability Normal Dynamic Sitting Balance Ability Good Standing Balance and Reactions Static Standing Balance Ability Good M8 OT- IP Objective Assessments Start: 02/03/22 13:15 Freq: Status: Active Protocol: Document 02/05/22 11:38 [facility] (Rec: 02/05/22 12:10 [facility] [id number]) OT Strength Comments Strength Comments Noted increased strength in her fingers and able to hold the pen to sign her name today . Issued pt theraputty and able to place items embedded in the putty to help work on strengthening and with her right hand. M9 OT- IP Assessment and Plan Start: 02/03/22 13:15 Freq: Status: Active Protocol: Document 02/05/22 11:38 [facility] (Rec: 02/05/22 12:10 [facility] [id number]) OT Summary Assessment and Plan Potential Rehabilitation Potential Good Analytic Complexity at Evaluation Moderate Summary OT Impairments Pain,Range of Motion,Strength, Balance,Functional Cognition, Functional Mobility,Self- Feeding,Grooming,Dressing, Toileting,Bathing,Toilet Transfers,Shower Transfers, Activity Tolerance Progress Towards Goals Progressing Toward Goals Assessment Summary Pt issued theraputty to help improve right hand strengthening and coordination . To continue to work with pt for FMS needs and executive cognition. Goals Grooming Goal Independent Dressing Goal Independent Toileting Goal Independent Bathing Goal Independent Toilet Transfer Goal Independent Shower Transfer Goal Independent Days to Meet Goals 19 Frequency of Treatment Frequency Of Treatment Once a Day Treatment Plan OT Treatment Plan ADL Training,Functional Cognition Training,Functional Mobility,Patient/Family Education,Discharge Planning Other Treatment Recommendations and Next retry Amberg making Part B Treatment Focus Discharge Recommendations OT Discharge Recommendations Home with 24/7 Assist Available,Outpatient PT Transportation Needs at Discharge Private Vehicle
--- NOTE | 2022-02-05 12:38 | ST.IPTN ---
Visit Care Team Role Provider Type Kory Muir DO Emergency Provider Physician Referring Provider Address: [address] [place] [address], [id number] Ángel Barraza DO Admit Provider Physician Attending Provider Address: [address] [place] [address], [id number] DEVELOPMENT TECHNOLOGIST Treatment Note DEVELOPMENT TECHNOLOGIST Treatment Note Start: 02/04/22 10:49 Freq: Status: Active Protocol: Document 02/05/22 12:21 ZS (Rec: 02/05/22 12:37 ZS [id number]) Speech Pathology Treatment Note Session Time Visit Start Time 10:30 Visit Stop Time 11:00 Total Visit Minutes 30 Visit Information Visit Number 2 Setting Treatment Setting Acute Care Visit Type Note Type Treatment Note Next Note Type Next Note Type Treatment Note General Information Patient History Per H&P: Brandi Woodward is an 81-year-old female with a history of TIA and takes daily aspirin 81 mg who presented to the ED with her family today stating that she has been having tingling numbness and weakness to the right hand for approximately 4 days, today the family noticed slurring of words which appears to be more word- finding and confusion difficulties which the family states is not her baseline. Patient was also diagnosed with Flu 4 days ago, and was placed on Tamiflu. She also apparently was given doxycycline for a possible pneumonia diagnosis the family was unsure. Patient did have an NIH:0, GCS: 14 in the ED. at the time of admit patient's [id number] was at bedside states that patient normally walks 3 miles a day and volunteers several times a week, and is extremely active and independent. Patient is lying in the bed very flat affect not engaging in conversation minimal [id number]-law states this is not her baseline. Patient denies chest pain, shortness breast, fever, body aches, chills, abdominal pain, nausea, vomiting, diarrhea, blood in urine or stool, urinary frequency urgency dysuria, recent falls head injuries, skin injuries or open wounds, recent illness, or changes to her medication. Subjective Identification Type Name Identification Reconciled With Medical Record Others Present Family Observations/Patient Presentation Brandi was reclined in bed with relative at bedside when DEVELOPMENT TECHNOLOGIST arrived. Her eyes were open and she agreed to participate in all session activities. Branid presented with increased fatigue today with continued behavior where she would stop talking mid-sentence as she tried to find a word and then abandon the sentence she was saying. Chief Complaint(s) Language Objective Short Term Goals 1. Pt will independently use word finding strategies during unstructured conversation. 2. Pt will complete confrontation naming tasks with 100% accuracy using word finding strategies independently. 3. Pt will participate in cognitive screening. Treatment Activities Reviewed word finding strategies provided in previous sessions. Discussed reminding pt to use these with NSG. Targeted automatic speech with days of the weeks, counting, and months of the year. Assessment Assessment of Overall Progress Improving Assessment of Improvement Brandi demonstrated improvement in listing days of the week, though exhibited difficulty with months of the year, accurately naming 9/12 months (missed November, December, January) and requring verbal prompting to identify the next months in the sequence following August. her relative was asking math questions (i.e ., 10+2, 12-2, and 2+3). Pt was unable to complete first 2 equations and completed 3+3 instead of 2+3. Counting 1-10 was 100% accurate, though when asked to keep going, she could not. When prompted to count to 20, she did so with no difficulty. Discussed use of word finding strategies and reviewed strategies. Asked NSG to encourage use of word finding strategies when pt is exhibiting word finding difficulty. Discussed plan for cognitive assessment with improvement in language/word finding and family and pt expressed understanding. Pt is unable to participate in cognitive assessment at this time due to impact of language impairment on performance for several cognitive tasks. Reviewed with Patient Goals,Progress Being Made,Home Exercise Program Patient/Caregiver Understanding Good Plan Therapeutic Contents Cognitive-Linguistic Training, Expressive Language Training Provided Patient/Caregiver Instruction Home Exercise Program,Plan of Care,Questions/Concerns Therapy Recommendations Continue with Current Program
[2022-02-05 13:54] VITALS: BP 121/65; PULSE 68; RESP 17; TEMP 36.7; O2SAT 94
--- NOTE | 2022-02-05 14:23 | PT.IPTN ---
Current Diagnoses Cerebral infarction, unspecified (02/01/22) Physical Therapy Treatment Note M2 PT-IP Current Condition Start: 02/02/22 15:56 Freq: NEEDED Status: Active Protocol: Document 02/05/22 08:30 AMB (Rec: 02/05/22 14:22 AMB [id number]) Physical Therapy Current Condition Current Condition Evaluation Date 02/02/22 Treatment Diagnosis Influenza A; L CVA; difficulty in walking Onset Date 02/01/22 M3 PT-IP Subjective Start: 02/02/22 15:56 Freq: NEEDED Status: Active Protocol: Document 02/05/22 08:30 AMB (Rec: 02/05/22 14:22 AMB [id number]) Subjective Physical Therapy Visit Type Type Treatment Note Visit Start Time 08:30 Visit Stop Time 09:00 Total Visit Minutes 30 Physical Therapy Visit Comments Patient Comments Pt agreeable to PT session, son in room throughout duration of treatment. M4 PT-IP Mobility and Gait Start: 02/02/22 15:56 Freq: NEEDED Status: Active Protocol: Document 02/05/22 08:30 AMB (Rec: 02/05/22 14:22 AMB [id number]) PT-Bed Mobility Assessment Supine to Sit Supine to Sit Standby Assistance Scooting Scooting to Edge of Bed Standby Assistance PT-Transfer Assessment Sit to and From Stand Sit to and from Stand Standby Assistance Equipment Transfer Assistive Device Gait Belt,Front Wheeled Walker Orthotic/Prosthetic Devices or Brace: No Transfers Transfer Destination Bed,Toilet Transfer Technique Stand Pivot Transfer Ability Level of Assist Contact Guard Assistance Comments Mobility Comments Pt SBA for bed mobility and gait when using FWW, CGA when she lets go of FWW Gait Assessment Gait Gait Assistance Required: Contact Guard Assist Distance (Feet) 50 Able to Maintain Weight Bearing Status Yes During Gait Assistive Devices Assistive Device Gait Belt Orthotic/Prosthetic Devices or Brace: No Gait Deviations General Gait Pattern Ataxic,Decreased Stride Length ,Decreased Feet Clearance,Step -to Gait Factors Limiting Gait Function Factors Limiting Gait Function Poor Safety Awareness Comments Gait Comments pt did better today with out the fww and CGA. She initially used the fww to ambulate to the bathroom, pt had a bowel movement and voided and then stood x 5 min for brief change and to assist with wiping. Then ambulated around the room to wash hands in sink, and then back to bed . Performed balance exercises but then became SOB and assisted into bed with son present and call light. PT-Balance Assessment Sitting Balance and Reactions Static Sitting Balance Ability Normal Dynamic Sitting Balance Ability Good Standing Balance and Reactions Static Standing Balance Ability Good Dynamic Standing Balance Ability Fair Device Used without AD Comments Other Balance Tests/Deviations/Treatment Pt able to march in place : without UE support with CGA, also performed heel raises without UE support. M5 PT-IP Objective Assessments Start: 02/02/22 15:56 Freq: NEEDED Status: Active Protocol: Document 02/02/22 14:25 AB (Rec: 02/02/22 16:21 AB [id number]) Orientation Orientation/Cognition Level of Alertness Alert Orientation Name,Place,Situation Language Function Ability Word Finding Difficulties Safety Awareness Decreased Safety Awareness Memory Description No Deficits Noted Comments inconsistent with following directions Gross Range of Motion Lower Extremity ROM Assessment Within Functional Limits Strength Lower Extremity Strength Assessment Left Impaired Comments Strength Comments LLE: 3+/5 RLE: 4-/5 Muscle Tone Muscle Tone WNL Yes M6 PT-IP Treatment Start: 02/02/22 15:56 Freq: NEEDED Status: Active Protocol: Document 02/05/22 08:30 AMB (Rec: 02/05/22 14:22 AMB [id number]) Physical Therapy Treatment Other Treatments Other Treatment Performed pt was assisted with donning her brief and cleaning up after a bowel movement M7 PT-IP Assessment and Plan Start: 02/02/22 15:56 Freq: NEEDED Status: Active Protocol: Document 02/05/22 08:30 AMB (Rec: 02/05/22 14:22 AMB [id number]) PT Summary Assessment and Plan Potential Rehabilitation Potential Fair Status of Condition at Evaluation Evolving Summary Impairments Pain,ROM,Strength,Balance, Coordination,Sensation,Tone, Cognition,Bed Mobility, Transfers,Gait,Activity Tolerance Progress Towards Goals Progressing Toward Goals,Slow Progress due to Activity Tolerance Assessment Summary Pt can be impulsive to stand and ambulate when therapist is not ready. She was instructed in opposition ex/towel squeeze of R hand to improve function with grasp on FWW. Pt was SBA for bed mobility and sit to stands. Required SBA for ambulation with FWW due to unsteadiness, requires cues for safety, starts walking before therapist is ready and need cues to to be aware of safety, IV pole. Goals Bed Mobility Goal Independent Transfer Goal Independent Gait Goal Independent Gait Distance 200 Days to Meet Goals 5 Frequency of Treatment Frequency Of Treatment Once a Day Treatment Plan Physical Therapy Treatment Plan Bed Mobility Training,Transfer Training,Gait Training, Therapeutic Exercise,Balance Retraining,Discharge Planning, Hot or Cold Pack,Neuromuscular Re-ed,Coordination Retraining ,Manual Therapy Other Recommendations and Next Treatment continue progressing gait Focus distance and endurance for gait in room Precautions Other Precautions Droplet: Influenza A Recommendations To Nursing Amount of Assist Needed Standby Assistance Discharge Recommendations PT Discharge Recommendations Home with Assistance,Home with / Assist Available,Home Health,Outpatient PT Transportation Needs at Discharge Private Vehicle
[2022-02-05] MEDS: APIXABAN 5 MG TABLET PO ×2 (15:08→20:15)
[2022-02-05 16:02] LABS: Clostridium Difficile Tox PCR Negative for C. diff (Negative)
[2022-02-05 17:04] VITALS: BP 134/53; PULSE 63; RESP 16; TEMP 37; O2SAT 94
--- NOTE | 2022-02-05 19:24 | PM.PN.1 ---
Exam Vital Signs (past 8 hours): - 02/05/22 13:54 02/05/22 17:04 Temperature 98.0 F 98.6 F Pulse Rate 68 63 Respiratory Rate 17 16 Blood Pressure 121/65 134/53 L Pulse Oximetry 94 94 Oxygen Flow Rate 0 0 Oxygen Delivery Method Room Air Oxygen Flow Rate 0 Objective Labs Result Diagrams: 02/04/22 07:17 02/04/22 07:17 Labs: Laboratory Results - last 24 hr 02/05/22 02/05/22 06:03 14:30 APTT 56 H C. difficile Tox (PCR) Negative for c. diff [facility] Medical History (Updated 02/02/22 @ 02:41 by PANCHITO Auguste) Hyperlipidemia TIA (transient ischemic attack) Surgical History (Updated 02/02/22 @ 02:40 by PANCHITO Auguste) History of dental surgery Family History Father Heart attack Mother Heart attack Stroke Social History household members: none Smoking Status: Never smoker Assessment & Plan Assessment & Plan narrative: 1. Acute left hemispheric multifocal infarcts, small, with mild cognitive impairment, present on admission ON admisison, GCS 14, now 0. Echo showed EF 55-60% w/moderate calcification of subvalvular appartus/significant calcification along aortic-mitral curtain which was felt to be a potential source for embolic events. Remains on DOAC/high-intensity atorvastatin. Remains in sinus rhythm. Started lexapro for depression prevention. 2. Proximal Left ICA intraluminal thrombus Initially on a heparin gtt. Now on Apixiban but will transition to Xarelto at d/c. Family to pay the copay. Will need f/u CTA in 1 week and again in 1 month. 3. Hyperlipidemia Now on atorvastatin; simvastatin d/c'd. 4. Acute influenza A infection Pt is presently on tamiflu. 5. Diarrhea C diff negative. Add probiotics. 6. Normocytic anemia Mild. Code status Full Prophy Apixiban Dispo Home w/HH D/C summary to be sent to Dr. Richa Abrams. Time Spent With Patient Critical Care time: I spent a total of [] minutes of critical care time on this patient's care today; this time is exclusive of procedural time.
[2022-02-05] MEDS: ATORVASTATIN 20 MG TABLET 80 MG PO (20:15)
[2022-02-05 20:50] VITALS: BP 127/54; PULSE 63; RESP 16; TEMP 36.7; O2SAT 94
[2022-02-06 00:58] VITALS: BP 134/53; PULSE 67; RESP 18; TEMP 36.6; O2SAT 97
[2022-02-06 04:00] VITALS: BP 120/50; PULSE 62; RESP 16; TEMP 36.9; O2SAT 95
--- NOTE | 2022-02-06 04:59 | PC.NURSE ---
pt is Axox4, needs 1 person assistance and cooperative. VSS, no c/o pain or any discomfort. Pt slept all night. Continued droplet precaution. Continue monitor.
[2022-02-06 05:40] LABS: Add Manual Diff / Slide Review NO; Basophils Absolute Auto 0 /uL (0-100); Basophils Percent Auto 0.9 % (0-2); Eosinophils Absolute Auto 100 /uL (0-450); Eosinophils Percent Auto 1.9 % (2-4); Hematocrit 33.8 % (36-46); Hemoglobin 11.5 g/dL (12.0-16.0); Lymphocytes Absolute Auto 1300 /uL (1100-4500); Lymphocytes Percent Auto 32.2 % (25-40); Mean Corpuscular Hemoglobin 32.8 PG (26-34); Mean Corpuscular Volume 96.5 fL (80-100); Monocytes Absolute Auto 700 /uL (0-900); Monocytes Percent Auto 16.5 % (3-14); Neutrophils Absolute Auto 2000 /uL (1500-7000); Neutrophils Percent Auto 48.5 % (50-75); Platelet Count 334 X10^3/uL (150-400); Red Blood Cell Count 3.51 X10^6/uL (4.0-5.2); Red Cell Distribution Width 12.5 % (11.6-14.8); White Blood Cell Count 4.1 X10^3/uL (4.5-11.0)
[2022-02-06 05:49] LABS: BUN Creatinine Ratio 22.5 (6-22); Blood Urea Nitrogen 16 mg/dL (7-17); Calcium 8.6 mg/dL (8.4-10.2); Carbon Dioxide 26 mmol/L (22-32); Chloride 101 mmol/L (98-107); Estimated Glomerular Filt Rate > 60 mL/min (>60); Glucose 93 mg/dL (80-110); HEMOLYSIS < 15 (0-50); Sodium 136 mmol/L (137-145)
[2022-02-06 08:00] VITALS: BP 128/57; PULSE 69; RESP 16; TEMP 35.8; O2SAT 94
[2022-02-06] MEDS: ESCITALOPRAM 10 MG TABLET PO (09:52)
[2022-02-06] MEDS: LACTOBACILLUS ACIDOPHILUS TABLET 1 EACH PO (09:52)
[2022-02-06] MEDS: APIXABAN 5 MG TABLET PO (09:52)
--- NOTE | 2022-02-06 11:07 | PC.NURSE ---
Assess- Patient has a small nose bleed, eloquis still given per . She is doing well. Speech clear and moving with walker and one person assist. Patient is going to be discharging to home today after Dr. Finch comes down to see patient and then does her paperwork.
--- NOTE | 2022-02-06 11:37 | CM.DPC ---
DCP Discharge Home with HH Per MD, pt remains medically stable to d/c home today via son POV and no identified barriers to discharge. SW met bedside with pt and brando Melton and explained role and they confirm they are agreeable with d/c home today and SW provided the [facility] brochure and explained services and frequency. Brando Melton plans to provide transport home today. SW faxed d/c summary to [facility] for review and F2F and orders previously faxed. SW updated RN and collaborating supervising physician. Plan: Patient to d/c home via son's POV and assist and new [facility] referral made to follow after discharge. No further SW needs at this time. SARAH Branham
[2022-02-06 12:00] VITALS: BP 135/59; PULSE 63; RESP 16; TEMP 36.4; O2SAT 92
--- NOTE | 2022-02-06 12:20 | P.DS_ITS ---
History of Present Illness History of Present Illness Date Patient Seen: 02/06/22 Chief complaint: slurring her words/ numbness/ history TIA Narrative: Per history and physical: Brandi Woodward is an 81-year-old female with a history of TIA and takes daily aspirin 81 mg who presented to the ED with her family today stating that she has been having tingling numbness and weakness to the right hand for approximately 4 days, today the family noticed slurring of words which appears to be more word- finding and confusion difficulties which the family states is not her baseline.? Patient was also diagnosed with Flu 4 days ago, and was placed on Tamiflu.? She also apparently was given doxycycline for a possible pneumonia diagnosis the family was unsure.? Patient did have an NIH:0, GCS: 14 in the ED. at the time of admit patient's [id number] was at bedside states that patient normally walks 3 miles a day and volunteers several times a week, and is extremely active and independent.? Patient is lying in the bed very flat affect not engaging in conversation minimal [id number]-law states this is not her baseline.? Patient denies chest pain, shortness breast, fever, body aches, chills, abdominal pain, nausea, vomiting, diarrhea, blood in urine or stool, urinary frequency urgency dysuria, recent falls head injuries, skin injuries or open wounds, recent illness, or changes to her medication. Patient's laboratory findings were predominantly within normal limits have a slight elevated platelet count at 453, AST 40 and alk-phos 160, total cholesterol 207, LDL 148, HDL 38, patient's troponin, lipase, procalcitonin, lactate, lipase were all within normal limits.? Patient's urine had bacteria culture is pending.? Patient's EKG sinus rhythm with a ventricular rate of [address] or T-wave changes I personally this.? Patient's head CT, chest x-ray were negative for any acute intracranial or cardiopulmonary processes.? Patient's MRI of the brain demonstrated multifocal small infarcts in the left hemisphere.? Head neck CTA demonstrated within the proximal left ICA just distal to the origin there is intraluminal thrombus with moderate stenosis 50-60%. .? Thrombus extends for approximately 1.5 cm in length, and mild atherosclerotic plaque and calcification in the common carotid arteries and carotid bifurcations bilaterally.? Tele stroke was consulted Dr. Plummer and Dr. Amado regarding interventtional tx, and that the patient was not a candidate for surgical intervention.? Patient is admitted for stroke multifocal of left hemisphere with confusion, thrombosis left ICA with moderate stenosis, and influenza A. Discharge Providers Provider Date of admission: 02/01/22 16:25 Discharge Date: 02/06/22 Consults: 02/01/22 15:30 Consult to Occupational Therapy Evaluate & Treat Comment: Physician Instructions: Evaluate and treat Consult to Physical Therapy Evaluate & Treat Comment: Physician Instructions: Evaluate and Treat 02/01/22 15:33 Consult to Speech Therapy Evaluate & Treat Comment: TIA Physician Instructions: Evaluate and treat 02/05/22 15:38 Consult to Home Health Routine Comment: Reason For Exam: Home health upon discharge Discharge provider: Juliann Finch MD Summary Hospital Course Discharge Diagnosis: 1. Acute left hemispheric multifocal infarcts, small, with mild cognitive impairment, present on admission 2.? Proximal Left ICA intraluminal thrombus 3.? Hyperlipidemia 4.? Acute influenza A infection 5.? Diarrhea 6.? Normocytic anemia Hospital Course: Patient was admitted with left hemispheric multifocal infarcts with mild cognitive impairment, numbness/tingling and weakness to the right hand and arm, word-finding difficulties, and slurred speech. Initial NIH was 14. Tele stroke consult were performed. Intraluminal thrombus was identified to the proximal left internal carotid artery. There was also moderate 50-60% internal carotid artery stenosis. Recommendations from tele stroke providers was for initiation of a heparin infusion. Echo showed EF 55-60% w/moderate calcification of subvalvular appartus/significant calcification along aortic-mitral curtain which was felt to be a potential source for embolic events.? Follow-up CTA revealed no acute change. Team reached out to tele stroke again and they felt transitioning to a DOAC would be an acceptable choice. Patient now Remains on DOAC/high-int ensity atorvastatin.? Remains in sinus rhythm.? She was also initiated on lexapro for depression prevention. Simvastatin was discontinued in favor of atorvastatin for high intensity therapy. Patient also had influenza a on admission. She did receive Tamiflu. Symptomatically she has improved. She did have some diarrhea over the course of her hospitalization. C diff was done and negative. Probiotics were added. I did discuss with the patient's son consideration of reaching out to [facility] to determine if the patient can access 340 be pricing for her Xarelto moving forward. Also discussed would be [facility] pharmacy has a 340 be pharmacy option as well. Son will look into it and contact us if he needs prescription sent to 1 of those pharmacies for more cost-effective ongoing care. Status at Discharge Cognitive/behavioral status at discharge: at baseline, confused Overall status at discharge: patient is progressing back to baseline Time Spent with Patient Time spent: Greater than 30 minutes (35 minutes spent coordinating discharge) Exam Vital Signs (past 8 hours): - 02/06/22 08:00 Temperature 96.4 F L Pulse Rate 69 Respiratory Rate 16 Blood Pressure 128/57 L Pulse Oximetry 94 Oxygen Flow Rate 0 Oxygen Delivery Method Room Air Oxygen Flow Rate 0 Narrative Exam Narrative: GEN: Pleasant elderly female, Alert and oriented x 3, NAD HEENT:NC, Face symmetric CHEST: Respiratory excursions symmetric, CTAB CV: RRR, no M/R/G ABD: Soft, NT/ND, BT present in all 4 quadrants, no organomegaly or masses EXTR: warm, well perfused, no C/C/E SKIN: warm and dry, no rash NEURO: Alert and oriented x 3, nonfocal, slightly slowed speech kecia Objective Labs Result Diagrams: 02/06/22 05:08 02/06/22 05:08 Labs: Laboratory Results - last 24 hr 02/05/22 02/06/22 02/06/22 14:30 05:08 05:08 WBC 4.1 L RBC 3.51 L Hgb 11.5 L Hct 33.8 L MCV 96.5 MCH 32.8 MCHC 34.0 RDW 12.5 Plt Count 334 Neut % (Auto) 48.5 L Lymph % (Auto) 32.2 [place] % (Auto) 16.5 H Eos % (Auto) 1.9 L Baso % (Auto) 0.9 Neut # (Auto) 2000 Lymph # (Auto) 1300 [place] # (Auto) 700 Eos # (Auto) 100 Baso # (Auto) 0 Sodium 136 L Potassium 4.0 Chloride 101 Carbon Dioxide 26 BUN 16 Creatinine 0.71 Estimated GFR > 60 BUN/Creatinine Ratio 22.5 H Glucose 93 Calcium 8.6 C. difficile Tox (PCR) Negative for c. diff [facility] Medical History (Updated 02/02/22 @ 02:41 by PANCHITO Auguste) Hyperlipidemia TIA (transient ischemic attack) Surgical History (Updated 02/02/22 @ 02:40 by PANCHITO Auguste) History of dental surgery Family History Father Heart attack Mother Heart attack Stroke Social History household members: none Smoking Status: Never smoker Discharge Plan Discharge Plan Patient Disposition: Home Health Service Provider Discharge Comment: With regard to your new stroke and the clot that was found within your carotid artery, you will need a follow-up CT angiogram of the head in approximately 1 week, which will be coordinated by your primary care provider. You will need 1 additional study in approximately 1 month, again this should be arranged by your primary care provider. Return to the emergency depar tment for any new or worsening neurologic symptoms, fevers or chills, nausea or vomiting, or inability to hold down food or fluids. Get a bottle of saline nasal spray and use liberally to help reduce nosebleeds. Also keep a bottle of Afrin in the home. Use 2-3 sprays as needed at onset of nosebleed. Go to the nearest ER for a nosebleed that does not stop w/direct pressure after one hour. Discharge orders & Medications Prescriptions: New escitalopram oxalate [Lexapro] 10 mg Tablet 10 mg PO DAILY Qty: 90 0RF Xarelto 20 mg tablet 20 mg PO QPM Qty: 30 0RF Rx Instructions: must administer with evening meal atorvastatin [Lipitor] 80 mg tablet 80 mg PO BEDTIME Qty: 90 0RF atorvastatin 40 mg tablet 80 mg PO DAILY Qty: 60 0RF Discontinued simvastatin 40 mg tablet 40 mg PO DAILY Label Comments: TAKE 1 TABLET BY MOUTH ONCE DAILY oseltamivir 75 mg capsule 75 mg PO BID Label Comments: TAKE ONE CAPSULE BY MOUTH TWICE DAILY FOR 5 DAYS Rx Instructions: should have completed course on 01/31 doxycycline monohydrate 100 mg tablet 100 mg PO BID Label Comments: TAKE 1 TABLET BY MOUTH TWICE DAILY FOR 7 DAYS (should finish on 02/06) Diet/Activity/Treatments Diet: Diet as Tolerated Activity: As tolerated Oxygen: N/A Visit Report/Discharge Packet Instructions: DI for Stroke-Ischemic
== END 2022-02-06 13:03 | disposition home or self-care (01) | DRG 66 ==
LOC: ED 15:31 → AC 16:25
PROVIDERS: Internal Medicine; Admitting Provider Student in an Organized Health Care Education/Training Program; Emergency Provider Emergency Medicine; Referring Provider Emergency Medicine; Visit Provider Student in an Organized Health Care Education/Training Program
DX: I63.032 Cerebral infarction due to thrombosis of left carotid artery (principal); J10.1 Influenza due to other identified influenza virus with other respiratory manifestations; E78.5 Hyperlipidemia, unspecified; R47.01 Aphasia; R29.700 NIHSS score 0; R19.7 Diarrhea, unspecified; R29.705 NIHSS score 5; Z86.73 Personal history of transient ischemic attack (TIA), and cerebral infarction without residual deficits; Z20.822 Contact with and (suspected) exposure to COVID-19
CPT/HCPCS: 0241U; 36415; 70450; 70496; 70498; 70551; 71045; 80048; 80053; 80061; 80305; 81003; 81015; 82550; 83036; 83605; 83690; 83735; 84145; 84484; 85025; 85610; 85730; 87040; 87077; 87086; 87493; 92507; 92523; 93005; 93010; 93306; 96365; 96366; 96375; 97116; 97162; 97167; 97530; 97535; 99285; J0696; J1644; J3360; Q9967